=== PATIENT | female | born 1955 | race Asian ===

== ENCOUNTER 2017-10-24 22:02 | Emergency (ER) | payer OTHER ==
[2017-10-24 22:51] VITALS: BMI 20.8
[2017-10-24] MEDS ORDERED: ACETAMINOPHEN 325 MG TABLET (FP) PO ONE (23:18)
--- NOTE | 2017-10-24 23:18 | PDOC ---
History of Present Illness - History of Present Illness Initial Comments: 10/24/17 23:22 Patient is a 62 F, with PMHx of hypertension, who presents to the ED with elevated blood pressure. Patient recently found out that her brother and subsequently her blood pressure increased. She also endorses a mild posterior headache. She states she is experiencing chest pain that she describes it as pressure-like, non-radiating, and rates the pain 4/10. Denies shortness of breath. Social Hx: denies PMD: Vanessa Archer. <Tracy Galicia - Last Filed: 10/25/17 01:02> - General History Source: Patient <AbimaelOnofre mendes - Last Filed: 10/25/17 01:39> - General Chief Complaint: Blood Pressure Problem Stated Complaint: BLOOD PRESSURE PROBLEM Time Seen by Provider: 10/24/17 23:14 Past History <Tracy Galicia - Last Filed: 10/25/17 01:02> - Past Medical History COPD: No HTN: Yes - Suicide/Smoking/Psychosocial Hx Smoking History: Never smoked <Onofre Xiao - Last Filed: 10/25/17 01:39> - Past Medical History Allergies/Adverse Reactions: Allergies Allergy/AdvReac Type Severity Reaction Status Date / Time No Known Allergies Allergy Verified 10/24/17 22:46 Home Medications: Ambulatory Orders Cholecalciferol (Vitamin D3) [Vitamin D3 -] 1,000 unit PO DAILY 10/24/17 Metoprolol Succinate [Toprol Xl -] 100 mg PO DAILY 10/24/17 Review of Systems - Review of Systems Comments:: 10/24/17 23:23 CONSTITUTIONAL: Absent: fever, no chills, no fatigue EYES: Absent: visual changes ENT: Absent: ear pain, no sore throat CARDIOVASCULAR: Present: chest pain Absent: no palpitations RESPIRATORY: Absent: cough, no SOB GI: Absent: abdominal pain, no nausea, no vomiting, no constipation, no diarrhea GENITOURINARY: Absent: dysuria, no frequency, no hematuria MUSCULOSKELETAL: Absent: back pain, no arthralgia, no myalgia SKIN: Absent: rash NEURO: Present: headache <Tracy Galicia - Last Filed: 10/25/17 01:02> *Physical Exam - Vital Signs Last Vital Signs Temp Pulse Resp BP Pulse Ox 97.9 F 63 18 187/108 98 10/24/17 22:50 10/24/17 22:50 10/24/17 22:50 10/24/17 22:50 10/24/17 22:50 - Physical Exam Comments: 10/24/17 23:25 GENERAL: Well-appearing, well-nourished. No apparent distress. HEENT: Normocephalic, atraumatic. PERRL, EOM intact. CARDIOVASCULAR: Normal S1, S2. Regular rate and rhythm. PULMONARY: Clear to auscultation bilaterally. ABDOMEN: Soft, non-distended, non-tender. EXTREMITIES: Normal ROM in all four extremities. No gross deformities. SKIN: Warm, dry. No rash NEUROLOGICAL: No focal neurological deficits. <Tracy Galicia - Last Filed: 10/25/17 01:02> - Vital Signs Last Vital Signs Temp Pulse Resp BP Pulse Ox 97.9 F 63 18 187/108 98 10/24/17 22:50 10/24/17 22:50 10/24/17 22:50 10/24/17 22:50 10/24/17 22:50 <Onofre Xiao - Last Filed: 10/25/17 01:39> Heart Score/ECG Review - ECG Impressions Comment:: 10/25/17 01:02 EKG Interpretation: Sinus bradycardia Possible left atrial enlargement Vent. rate 57 bpm <Tracy Galicia - Last Filed: 10/25/17 01:02> ED Treatment Course - LABORATORY CBC & Chemistry Diagram: 10/25/17 00:10 10/25/17 00:10 <Tracy Galicia - Last Filed: 10/25/17 01:02> - LABORATORY CBC & Chemistry Diagram: 10/25/17 00:10 10/25/17 00:10 <Onofre Xiao - Last Filed: 10/25/17 01:39> Medical Decision Making - Medical Decision Making 10/25/17 01:39 Dr. Xiao: The scribe's documentation has been prepared under my direction and personally reviewed by me in its entirery. I confirm that the note above accurately reflects all work, treatment, procedures, and medical decision making performed by me. <Onofre Xiao - Last Filed: 10/25/17 01:39> *DC/Admit/Observation/Transfer - Attestations Scribe Attestion: 10/24/17 23:25 Documentation prepared by Tracy Galicia, acting as lpn or medical assistant for Onofre Xiao MD. <Tracy Galicia - Last Filed: 10/25/17 01:02> - Discharge Dispostion Admit: No <Onofre Xiao - Last Filed: 10/25/17 01:39> Diagnosis at time of Disposition: Hypertension - Discharge Dispostion Disposition: HOME Condition at time of disposition: Stable - Referrals Referrals: Rand Archer MD [Primary Care Provider] - Cody Yang MD [Staff Physician] - - Patient Instructions Printed Discharge Instructions: DI for High Blood Pressure, How to Monitor Your Blood Pressure at Home Additional Instructions: Please follow up with your primary care for re-evaluation. Return if any problems.
[2017-10-24] MEDS ORDERED: ACETAMINOPHEN 325 MG TABLET (FP) ONE (23:45)
[2017-10-25 00:20] LABS: BASO % 0.7 % (0-2.0); EOS % 2.3 % (0-4.5); HEMATOCRIT 47.1 % (32.4-45.2); HEMOGLOBIN 15.6 GM/dL (10.7-15.3); LYMPH % 32.4 % (8-40); MCH 28.8 pg (25.7-33.7); MCHC 33.2 g/dl (32.0-36.0); MEAN CELL VOLUME 86.7 fl (80-96); MEAN PLT VOLUME 7.4 fl (7.5-11.1); MONO % 10.5 % (3.8-10.2); NEUT % 54.1 % (42.8-82.8); PLATELET COUNT 506 K/MM3 (134-434); RBC 5.43 M/mm3 (3.60-5.2); RDW 13.7 % (11.6-15.6); WHITE BLOOD COUNT 10.6 K/mm3 (4.0-10.0)
[2017-10-25 00:47] LABS: ALBUMIN 3.8 g/dl (3.4-5.0); ANION GAP 9 (8-16); BILIRUBIN,TOTAL 0.3 mg/dL (0.2-1.0); BLOOD UREA NITROGEN 11 mg/dL (7-18); CALCIUM 9.7 mg/dL (8.5-10.1); CHLORIDE 104 mmol/L (98-107); CO2 29 mmol/L (21-32); CREATININE 0.7 mg/dL (0.55-1.02); GLUCOSE,RANDOM 102 mg/dL (74-106); SGPT/ALT 16 U/L (12-78); SODIUM 142 mmol/L (136-145); TOT PROT 7.9 g/dl (6.4-8.2)
[2017-10-25 00:50] LABS: ALK PHOS 54 U/L (45-117); POTASSIUM 4.1 mmol/L (3.5-5.1); SGOT/AST 12 U/L (15-37)
[2017-10-25 01:44] VITALS: BP 150/88; PULSE 56; TEMP 98
--- NOTE | 2017-10-25 10:30 | EKG ---
Test Reason : Blood Pressure : / mmHG Vent. Rate : 057 BPM Atrial Rate : 057 BPM P-R Int : 136 ms QRS Dur : 082 ms QT Int : 434 ms P-R-T Axes : 060 047 038 degrees QTc Int : 422 ms SINUS BRADYCARDIA POSSIBLE LEFT ATRIAL ENLARGEMENT BORDERLINE ECG NO PREVIOUS ECGS AVAILABLE Confirmed by COREY WILLIS MD ([id number]) on 10/25/2017 10:30:26 AM Referred By: Confirmed By:COREY WILLIS MD
== END 2017-10-25 01:52 | disposition home or self-care (01) ==
LOC: JER 22:02
DX: I10 Essential (primary) hypertension (principal)
CPT/HCPCS: 36415; 80053; 82550; 84484; 85025; 93005; 93010; 99282-25

== ENCOUNTER 2017-10-29 17:16 | Observation (INO) | payer OTHER ==
--- NOTE | 2017-10-29 17:26 | PDOC ---
Rapid Medical Evaluation Time Seen by Provider: 10/29/17 17:20 Medical Evaluation: Allergies Allergy/AdvReac Type Severity Reaction Status Date / Time No Known Allergies Allergy Verified 10/29/17 17:20 10/29/17 17:21 The patient presents with a chief complaint of: [Syncopal episode at 1 pm, hit the right side of the face. Unknown how long she was out, fell on the street and was not witnessed. Woke up by herself, walked home and she ate something. No Blood thinners.] I have performed a brief in-person evaluation of this patient. Pertinent physical exam findings: BP 155/93, Abrasion to the right side of the lips and pain to the right side of the face, ] I have ordered the following: [EKG, Labs, cardiac enzymes. UA, UC ] The patient will proceed to the ED for further evaluation. Discharge Disposition - Diagnosis Fall Qualifiers: Encounter type: initial encounter Qualified Code(s): W19.XXXA - Unspecified fall, initial encounter - Referrals - Patient Instructions - Post Discharge Activity
[2017-10-29 18:09] LABS: BASO % 0.7 % (0-2.0); HEMATOCRIT 42.8 % (32.4-45.2); HEMOGLOBIN 14.3 GM/dL (10.7-15.3); LYMPH % 21.8 % (8-40); MCHC 33.4 g/dl (32.0-36.0); MEAN PLT VOLUME 7.8 fl (7.5-11.1); MONO % 7.6 % (3.8-10.2); NEUT % 68.9 % (42.8-82.8); PLATELET COUNT 439 K/MM3 (134-434); RBC 4.92 M/mm3 (3.60-5.2); RDW 13.6 % (11.6-15.6); WHITE BLOOD COUNT 12.8 K/mm3 (4.0-10.0)
--- NOTE | 2017-10-29 18:22 | PDOC ---
History of Present Illness - General History Source: Patient Exam Limitations: No Limitations <Joseph Peterson - Last Filed: 10/29/17 19:29> <Veena Ness - Last Filed: 10/29/17 20:57> - General Chief Complaint: Syncope/Near Syncope Stated Complaint: FALL INJURY Time Seen by Provider: 10/29/17 17:20 - History of Present Illness Initial Comments: 10/29/17 18:22 This is 62-year-old woman with past medical history of hypertension uterine CA with total abdominal hysterectomy presents to the emergency department after a syncopal episode at approximately 1:00 this afternoon. Patient states she was leaving work and walking to the bus stop and then remembers waking up on the sidewalk. Patient denies feeling dizzy prior to syncopal episode. Patient then got up and took the bus home 8 some food without difficulty and came to the emergency department afterwards. Patient was seen and evaluated in this emergency room 2 days ago for hypertension. Patient denies fevers, chills, chest pain, shortness of breath, abdominal pain, nausea, vomiting, diarrhea. PMH: Hypertension, uterine CA PSH: MIRELLA PMD: Vanessa Archer Occupation: Home health aide Tobacco: Denies EtOH: Denies Illicits: Denies (Joseph Peterson) Past History - Past Medical History COPD: No HTN: Yes - Suicide/Smoking/Psychosocial Hx Smoking History: Never smoked Have you smoked in the past 12 months: No Information on smoking cessation initiated: No Hx Alcohol Use: No Drug/Substance Use Hx: No Substance Use Type: None <Joseph Peterson - Last Filed: 10/29/17 19:29> <Veena Ness - Last Filed: 10/29/17 20:57> - Past Medical History Allergies/Adverse Reactions: Allergies Allergy/AdvReac Type Severity Reaction Status Date / Time No Known Allergies Allergy Verified 10/29/17 17:20 Home Medications: Ambulatory Orders Cholecalciferol (Vitamin D3) [Vitamin D3 -] 1,000 unit PO DAILY 10/24/17 Metoprolol Succinate [Toprol Xl -] 100 mg PO DAILY 10/24/17 Review of Systems - Review of Systems Able to Perform ROS?: Yes Is the patient limited Salvadorean proficient: No Constitutional: No: Symptoms Reported HEENTM: No: Symptoms Reported Respiratory: No: Symptoms reported Cardiac (ROS): Yes: See HPI ABD/GI: No: Symptoms Reported : No: Symptoms Reported Musculoskeletal: No: Symptoms Reported Integumentary: No: Symptoms Reported Neurological: No: Symptoms reported Endocrine: No: Symptoms Reported Hematologic/Lymphatic: No: Symptoms Reported <Joseph Peterson - Last Filed: 10/29/17 19:29> *Physical Exam - Physical Exam General Appearance: Yes: Appropriately Dressed. No: Apparent Distress HEENT: positive: Orbits (tenderness to right infraorbit), Other (chipped teeth # 7&8). negative: Pharyngeal Erythema, Tonsillar Exudate, Nasal Congestion, Sinus Tenderness Neck: positive: Trachea midline, Supple Respiratory/Chest: positive: Lungs Clear, Normal Breath Sounds. negative: Chest Tender, Respiratory Distress, Accessory Muscle Use Cardiovascular: positive: Regular Rhythm, Regular Rate, S1, S2. negative: Edema , JVD, Murmur Gastrointestinal/Abdominal: positive: Normal Bowel Sounds, Soft. negative: Tender Musculoskeletal: positive: Normal Inspection. negative: CVA Tenderness Extremity: positive: Normal Range of Motion, Other (abrasion to right knee) Integumentary: positive: Normal Color, Dry, Warm, Other (abrasion to right knee) Neurologic: positive: heel turner II-XII NML intact, Fully Oriented, Alert, Normal Mood/ Affect, Normal Response, Motor Strength 5/5, Finger to Nose <Joseph Peterson - Last Filed: 10/29/17 19:29> - Vital Signs Last Vital Signs Temp Pulse Resp BP Pulse Ox 98.2 F 67 18 155/93 100 10/29/17 17:21 10/29/17 17:21 10/29/17 17:21 10/29/17 17:21 10/29/17 17:21 Heart Score/ECG Review - History History: Slightly suspicious - Electrocardiogram EKG: Non specific repolarization disturbance - Age Age: 45-65 - Risk Factors Risk Factors Heart Score: Yes Hx Hypertension Based on the list above the patient has:: 1-2 risk factors - ECG Intrepretation Rhythm: Regular Rhythm - ST and T Non Specific ST-T Wave changes: Yes - ECG Impressions Ischemic Changes: No <NicholasJoseph - Last Filed: 10/29/17 19:29> ED Treatment Course - LABORATORY CBC & Chemistry Diagram: 10/29/17 17:43 10/29/17 17:43 <Joseph Peterson - Last Filed: 10/29/17 19:29> - LABORATORY CBC & Chemistry Diagram: 10/29/17 17:43 10/29/17 17:43 <Veena Ness - Last Filed: 10/29/17 20:57> - ADDITIONAL ORDERS Additional order review: Laboratory Results 10/29/17 10/29/17 18:05 17:43 Sodium 141 Potassium 3.8 Chloride 105 Carbon Dioxide 29 Anion Gap 7 L BUN 12 Creatinine 0.7 Creat Clearance w eGFR > 60 Random Glucose 132 H Calcium 9.2 Total Bilirubin 0.4 D AST 11 L ALT 16 Alkaline Phosphatase 47 Creatine Kinase 51 Troponin I < 0.02 Total Protein 7.0 Albumin 3.7 Urine Color Ltyellow Urine Appearance Clear Urine pH 5.0 Ur Specific [place] 1.004 Urine Protein Negative Urine Glucose (UA) Negative Urine Ketones Negative Urine Blood Negative Urine Nitrite Negative Urine Bilirubin Negative Urine Urobilinogen Negative Ur Leukocyte Esterase Negative 10/29/17 17:43 RBC 4.92 MCV 87.0 MCHC 33.4 RDW 13.6 MPV 7.8 Neutrophils % 68.9 D Lymphocytes % 21.8 D Monocytes % 7.6 Eosinophils % 1.0 Basophils % 0.7 - RADIOLOGY Radiology Studies Ordered: Category Date Time Status FACIAL BONES CT W/O CONTRAST [CT] Stat CT Scan 10/29/17 20:13 Ordered - Medications Given in the ED: ED Medications Discontinued Medications Generic Name Dose Route Start Last Admin Trade Name Freq PRN Reason Stop Dose Admin Tetanus/Diphtheria Toxoids Adsorbed 0.5 ml 10/29/17 20:17 10/29/17 20:25 Decavac IM 10/29/17 20:18 0.5 ml .ONCE ONE Administration Medical Decision Making <Joseph Peterson - Last Filed: 10/29/17 19:29> <Veena Ness - Last Filed: 10/29/17 20:57> - Medical Decision Making 10/29/17 18:22 A/P: 62-year-old woman with syncopal episode. Multiple abrasions to right side of face noted. Tenderness to right infraorbital. EOMI. EKG: NSR with rate of 66 unchanged from EKG on October 25, 2017. Labs, chest x-ray, UA, head CT. I will reevaluate the patient after all test has been completed. 10/29/17 19:29 I have given report to BERNY Ness regarding this patient. Pt's initial chief complaint: [ syncope] Pt's work up completed prior to sign out: [ Labs, UA, EKG] Pt treatment given from prior staff: [n/a] Pt plan to be completed: [Awaiting CT scan results] Dispo: [ admit to hospitalist ] (Joseph Peterson) *DC/Admit/Observation/Transfer <Joseph Peterson - Last Filed: 10/29/17 19:29> - Discharge Dispostion Admit: Yes <Veena Ness - Last Filed: 10/29/17 20:57> Diagnosis at time of Disposition: Syncope and collapse - Referrals Referrals: Rand Archer MD [Primary Care Provider] - - Patient Instructions - Post Discharge Activity
[2017-10-29 18:39] LABS: ALBUMIN 3.7 g/dl (3.4-5.0); ANION GAP 7 (8-16); BILIRUBIN,TOTAL 0.4 mg/dL (0.2-1.0); BLOOD UREA NITROGEN 12 mg/dL (7-18); CALCIUM 9.2 mg/dL (8.5-10.1); CHLORIDE 105 mmol/L (98-107); CO2 29 mmol/L (21-32); CREATININE 0.7 mg/dL (0.55-1.02); GLUCOSE,RANDOM 132 mg/dL (74-106); POTASSIUM 3.8 mmol/L (3.5-5.1); SGOT/AST 11 U/L (15-37); SGPT/ALT 16 U/L (12-78); SODIUM 141 mmol/L (136-145)
[2017-10-29 18:42] LABS: ALK PHOS 47 U/L (45-117)
[2017-10-29 18:46] LABS: URINE APPEARANCE CLEAR; URINE BILIRUBIN NEGATIVE (NEGATIVE); URINE BLOOD NEGATIVE (NEGATIVE); URINE COLOR LTYELLOW; URINE GLUCOSE (UA) NEGATIVE (NEGATIVE); URINE KETONE NEGATIVE (NEGATIVE); URINE LEUK ESTERASE NEGATIVE (NEGATIVE); URINE NITRITE NEGATIVE (NEGATIVE); URINE PROTEIN NEGATIVE (NEGATIVE); URINE UROBILINOGEN NEGATIVE mg/dL (0.2-1.0)
--- NOTE | 2017-10-29 19:40 | PDOC ---
*Physical Exam - Vital Signs Last Vital Signs Temp Pulse Resp BP Pulse Ox 98.2 F 67 18 155/93 100 10/29/17 17:21 10/29/17 17:21 10/29/17 17:21 10/29/17 17:21 10/29/17 17:21 - Physical Exam General Appearance: Yes: Appropriately Dressed HEENT: positive: Other (right sided facial tenderness, + chipped upper frontal incisor ) Respiratory/Chest: positive: Lungs Clear, Normal Breath Sounds Cardiovascular: positive: Regular Rhythm, Regular Rate Gastrointestinal/Abdominal: positive: Normal Bowel Sounds, Soft Extremity: positive: Normal Capillary Refill, Normal Inspection, Normal Range of Motion Integumentary: positive: Normal Color, Dry, Warm Neurologic: positive: Fully Oriented, Alert, Normal Mood/Affect ED Treatment Course - LABORATORY CBC & Chemistry Diagram: 10/31/17 06:55 10/31/17 06:55 - ADDITIONAL ORDERS Additional order review: Laboratory Results 10/29/17 10/29/17 18:05 17:43 Sodium 141 Potassium 3.8 Chloride 105 Carbon Dioxide 29 Anion Gap 7 L BUN 12 Creatinine 0.7 Creat Clearance w eGFR > 60 Random Glucose 132 H Calcium 9.2 Total Bilirubin 0.4 D AST 11 L ALT 16 Alkaline Phosphatase 47 Creatine Kinase 51 Troponin I < 0.02 Total Protein 7.0 Albumin 3.7 Urine Color Ltyellow Urine Appearance Clear Urine pH 5.0 Ur Specific [place] 1.004 Urine Protein Negative Urine Glucose (UA) Negative Urine Ketones Negative Urine Blood Negative Urine Nitrite Negative Urine Bilirubin Negative Urine Urobilinogen Negative Ur Leukocyte Esterase Negative 10/29/17 17:43 RBC 4.92 MCV 87.0 MCHC 33.4 RDW 13.6 MPV 7.8 Neutrophils % 68.9 D Lymphocytes % 21.8 D Monocytes % 7.6 Eosinophils % 1.0 Basophils % 0.7 Progress Note - Progress Note Progress Note: A: syncope P: CT facial bones pending. CT head and neck pending. Medical Decision Making - Medical Decision Making 10/29/17 20:17 patient reports waking up on the sidewalk post syncope. denies incontinence of bowel or urine. no recollection of the incident. + abrasion to face. last tetanus unknown. P: tetanus CT facial : negative. 10/29/17 20:57 Patient signed out to Dr. Ayaan for obs tele admission. *DC/Admit/Observation/Transfer Diagnosis at time of Disposition: Syncope and collapse - Discharge Dispostion Disposition: HOME Condition at time of disposition: Stable - Prescriptions - Referrals - Patient Instructions - Post Discharge Activity
[2017-10-29] MEDS ORDERED: TETANUS AND DIPHTHERIA TOXOID 0.5 ML DISP.SYRIN IM ONE (20:17)
--- NOTE | 2017-10-29 20:45 | PN ---
Teaching Attending Note Name of Resident: Heriberto Kohli ATTENDING PHYSICIAN STATEMENT I saw and evaluated the patient. I reviewed the resident's note and discussed the case with the resident. I agree with the resident's findings and plan as documented. SUBJECTIVE: 62 F with Pmhx. of HTN, Uterine Ca, TAHBSO. who presents after loss of concioussness. States aroun 1 pm this afternoon she left work and was at the bus stop, when she awoke on the sidewalk. No dizziness, or lightheadedness prior. No chest pain, pressure or shortness of breath. Denies any fever or chills. No urinary urgency or dysuria. OBJECTIVE: Physical: VS: Vital Signs Period Temp Pulse Resp BP Sys/Purcell Pulse Ox Last 24 Hr 98.2 F 67 18 155/93 100 GEN: NAD, resting in bed, AA0X3 HEENT: NCAT, PERRL, throat without erythema or exudates CARD: RRR S1, S2 RESP: CTAB ABD: 5X4 cm LLQ abdominal mass on palpation. BS present EXT: - C/C/E CBCD WBC 12.8 K/mm3 (4.0-10.0) H 10/29/17 17:43 RBC 4.92 M/mm3 (3.60-5.2) 10/29/17 17:43 Hgb 14.3 GM/dL (10.7-15.3) 10/29/17 17:43 Hct 42.8 % (32.4-45.2) 10/29/17 17:43 MCV 87.0 fl (80-96) 10/29/17 17:43 MCHC 33.4 g/dl (32.0-36.0) 10/29/17 17:43 RDW 13.6 % (11.6-15.6) 10/29/17 17:43 Plt Count 439 K/MM3 (134-434) H 10/29/17 17:43 MPV 7.8 fl (7.5-11.1) 10/29/17 17:43 CMP Sodium 141 mmol/L (136-145) 10/29/17 17:43 Potassium 3.8 mmol/L (3.5-5.1) 10/29/17 17:43 Chloride 105 mmol/L (98-107) 10/29/17 17:43 Carbon Dioxide 29 mmol/L (21-32) 10/29/17 17:43 Anion Gap 7 (8-16) L 10/29/17 17:43 BUN 12 mg/dL (7-18) 10/29/17 17:43 Creatinine 0.7 mg/dL (0.55-1.02) 10/29/17 17:43 Creat Clearance w eGFR > 60 (>60) 10/29/17 17:43 Random Glucose 132 mg/dL (74-106) H 10/29/17 17:43 Calcium 9.2 mg/dL (8.5-10.1) 10/29/17 17:43 Total Bilirubin 0.4 mg/dL (0.2-1.0) D 10/29/17 17:43 AST 11 U/L (15-37) L 10/29/17 17:43 ALT 16 U/L (12-78) 10/29/17 17:43 Alkaline Phosphatase 47 U/L (45-117) 10/29/17 17:43 Total Protein 7.0 g/dl (6.4-8.2) 10/29/17 17:43 Albumin 3.7 g/dl (3.4-5.0) 10/29/17 17:43 CARDIAC ENZYMES Creatine Kinase 51 IU/L (26-192) 10/29/17 17:43 Troponin I < 0.02 ng/ml (0.00-0.05) 10/29/17 17:43 CT HEAD- NEGATIVE CT C-SPINE: Negative for acute fracture EKG: NSR CXR: NO Acute Process ABD/PELVIS CT: Massively enlarged heterogenous uterus w. loss of uterine definition, small free pelvi fluid and right inguinal hernia containing simple fluid. Ovaries not visualized. Few small hepatic cyst in addition to subcm to small to charachterize hypodensities Bilateral [place] with discoid atelectasis R>L. ASSESSMENT AND PLAN: 62 F with Pmhx. of HTN, Uterine Ca s/p TAHBSO. who presents after loss of concioussness, being admitted for syncope 1.) Loss of Conscioussness - Ddx: Vasovagal/Cardiogenic syncope - Trend Trop/EKG - Echo/Carotid - Orthostatic VS - Lipid Panel - TSH 2.) Uterine Mass DDx: Fibroid Vs. Leiomyosarcoma - CTAP as above - Needs body builder onc eval for Bx - ? Depending on dx, may need MRI Brain 3.) HTN - Amlodipine - Hold BB as pt. is slightly bradycardic in 50s 4.) Dvt ppx - SCDs Place in Obs-Tele
[2017-10-29] MEDS ORDERED: amLODIPine BESYLATE 2.5 MG TABLET (FP) PO SCH (22:00)
--- NOTE | 2017-10-29 22:13 | HP ---
CHIEF COMPLAINT: syncope PCP: HISTORY OF PRESENT ILLNESS: 62 y/o F with PMH HTN (recent ED visit to [facility]), uterine tumor (1986), who presents to the ED after syncopal episode at 1pm this afternoon. 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 Pt states that she has no recollection of what happened prior to the fall, but she woke up outstretched on the ground. States that she had LOC for a few seconds, however fall was unwitnessed. Pt endorsed R sided head trauma with bruising, and minor lacerations to her R lip and knee, as well as chest pain, and subjective chills. Pt did not sleep well last night, as her brother recently . Prior to the event, she drank tea and coffee, denies drastic change in fluid or PO intake. She states that she initially went to Urgent Care, however they did not take her insurance, so she came to the ED. Denied palpitations, loss of bowel or urinary incontinence during episode, tongue biting, fever, N/V, blurred vision, or recent sick contacts. ER course was notable for: (1) leukocytosis 12.8 (2) First trop negative, <.02 (3) Received tetanus and diphtheria toxoid 0.5ml IM Recent Travel: none PAST MEDICAL HISTORY: HTN (recent ED visit to [facility]), uterine tumor (1986), 2017 CT (uterine fibroid vs. leiomyoma- massively enlarged and heterogeneous uterus with loss of uterine definition. Small amt free pelvic fluid) PAST SURGICAL HISTORY: as per MIRELLA pires (1987) Social History: works as a health aid Smoking: denies, second hand smoke exposure through Alcohol: denies Drugs: denies Family History: mother- nasopharynx CA, father- pancreatic CA Allergies No Known Allergies Allergy (Verified 10/29/17 17:20) HOME MEDICATIONS: Home Medications Medication Instructions Recorded Cholecalciferol (Vitamin D3) 1,000 unit PO DAILY 10/24/17 [Vitamin D3 -] Metoprolol Succinate [Toprol Xl -] 100 mg PO DAILY 10/24/17 REVIEW OF SYSTEMS CONSTITUTIONAL: Absent: fever, chills, diaphoresis, generalized weakness, malaise, loss of appetite, weight change HEENT: Absent: rhinorrhea, nasal congestion, throat pain, throat swelling, difficulty swallowing, mouth swelling, ear pain, eye pain, visual changes CARDIOVASCULAR: +chest pain, syncope Absent: palpitations, irregular heart rate, lightheadedness, peripheral edema RESPIRATORY: Absent: cough, shortness of breath, dyspnea with exertion, orthopnea, wheezing, stridor, hemoptysis GASTROINTESTINAL: Absent: abdominal pain, abdominal distension, nausea, vomiting, diarrhea, constipation, melena, hematochezia GENITOURINARY: Absent: dysuria, frequency, urgency, hesitancy, hematuria, flank pain, genital pain MUSCULOSKELETAL: Absent: myalgia, arthralgia, joint swelling, back pain, neck pain SKIN: Absent: rash, itching, pallor HEMATOLOGIC/IMMUNOLOGIC: Absent: easy bleeding, easy bruising, lymphadenopathy, frequent infections ENDOCRINE: Absent: unexplained weight gain, unexplained weight loss, heat intolerance, cold intolerance NEUROLOGIC: Absent: headache, focal weakness or paresthesias, dizziness, unsteady gait, seizure, mental status changes, bladder or bowel incontinence PSYCHIATRIC: Absent: anxiety, depression, suicidal or homicidal ideation, hallucinations. PHYSICAL EXAMINATION Vital Signs - 24 hr 10/29/17 17:21 Temperature 98.2 F Pulse Rate 67 Respiratory 18 Rate Blood Pressure 155/93 O2 Sat by Pulse 100 Oximetry (%) GENERAL: Resting comfortably. Awake, alert, and fully oriented, in no acute distress. HEAD: +occipital bruise, +R lip laceration EYES: Pupils equal, round and reactive to light, extraocular movements intact, sclera anicteric, conjunctiva clear. EARS, NOSE, THROAT: Ears normal, nares patent, oropharynx clear without exudates. Dry mucous membranes. NECK: Normal range of motion, supple LUNGS: Breath sounds equal, clear to auscultation bilaterally. No wheezes, and no crackles. No accessory muscle use. HEART: Regular rate and rhythm, normal S1 and S2 without murmur, rub or gallop. ABDOMEN: Soft, nontender, suprapubic mass (L>R), normoactive bowel sounds, no guarding LOWER EXTREMITIES: 2+ posterior tibial pulses, warm, well-perfused. No calf tenderness. No peripheral edema. Active and passive ROM NEUROLOGICAL: Cranial nerves II-XII and cerebellar fnc intact. Normal gait. PSYCHIATRIC: Cooperative. Laboratory Results 10/29/17 10/29/17 10/29/17 17:43 17:43 18:05 WBC 12.8 H RBC 4.92 Hgb 14.3 Hct 42.8 MCV 87.0 MCH 29.0 MCHC 33.4 RDW 13.6 Plt Count 439 H MPV 7.8 Neutrophils % 68.9 D Lymphocytes % 21.8 D Monocytes % 7.6 Eosinophils % 1.0 Basophils % 0.7 Sodium 141 Potassium 3.8 Chloride 105 Carbon Dioxide 29 Anion Gap 7 L BUN 12 Creatinine 0.7 Creat Clearance w eGFR > 60 Random Glucose 132 H Calcium 9.2 Total Bilirubin 0.4 D AST 11 L ALT 16 Alkaline Phosphatase 47 Creatine Kinase 51 Troponin I < 0.02 Total Protein 7.0 Albumin 3.7 Urine Color Ltyellow Urine Appearance Clear Urine pH 5.0 Ur Specific [place] 1.004 Urine Protein Negative Urine Glucose (UA) Negative Urine Ketones Negative Urine Blood Negative Urine Nitrite Negative Urine Bilirubin Negative Urine Urobilinogen Negative Ur Leukocyte Esterase Negative Microbiology -Urine cx: still pending Radio -EKG: NSR, Qtc 426 -Cervical spine CT: no acute fx, chronic degenerative changes in C5-C6, cervical spondylolysis -Head CT: no intracranial hemorrhage, chronic sphenoid sinus dz -CXR: without infiltrates ASSESSMENT/PLAN: 62 y/o F with PMH HTN (recent ED visit to [facility]), uterine tumor (1986), who presents to the ED after syncopal episode at 1pm this afternoon. Pt being admitted to tele obs for syncope r/o vasovagal vs. cardiogenic etiology. #Syncopal episode, r/o vasovagal vs. cardiogenic etiology -possible vasovagal, pt with recent life stress, emotional -possible cardiogenic, as pt bradycardic, hx chest pain -F/u ECHO -Trend troponins, first trop (-) -Orthostatic vitals q4hr -F/u Carotid US -F/u tomorrow's EKG -F/u lipid panel, TSH #hx enlarged uterus past CT 2016 -currently asymptomatic, however r/o uterine fibroid vs. leiomyosarcoma -Process Improvement Analyst consulted- Dr. Durbin -May need possible bx #HTN-currently uncontrolled -holding home metoprolol, as pt bradycardic -started on lowest dose amlodipine (norvasc 2.5mg PO daily) -continue to monitor and reassess dosage #PPX -DVT: SCD's #F/E/N IV NS 83 cc/hr Monitor electrolytes Sodium controlled diet #Dispo tele obs Visit type - Emergency Visit Emergency Visit: Yes ED Registration Date: 10/29/17 Care time: The patient presented to the Emergency Department on the above date and was hospitalized for further evaluation of their emergent condition. - New Patient This patient is new to me today: Yes Date on this admission: 10/29/17 - Critical Care Critical Care patient: No
[2017-10-29] MEDS: SODIUM CHLORIDE 1,000 ML IV SCH (22:38)
[2017-10-29] MEDS ORDERED: amLODIPine BESYLATE 5 MG TABLET (FP) ONE (23:08)
[2017-10-29 23:54] LABS: CHOLESTEROL 184 mg/dL (50-200); TRIGLYCERIDES 258 mg/dL (35-160)
[2017-10-30 00:58] LABS: HDL CHOLESTEROL 37 mg/dL (40-60); LDL CHOLESTEROL (ONLY SJRH) 115 mg/dL (5-100)
[2017-10-30 01:51] VITALS: BMI 20.5
[2017-10-30] MEDS: SODIUM CHLORIDE 1,000 ML IV SCH (06:56)
[2017-10-30 07:27] LABS: ANION GAP 8 (8-16); BLOOD UREA NITROGEN 16 mg/dL (7-18); CALCIUM 8.9 mg/dL (8.5-10.1); CHLORIDE 106 mmol/L (98-107); CO2 28 mmol/L (21-32); CREATININE 0.6 mg/dL (0.55-1.02); GLUCOSE,RANDOM 96 mg/dL (74-106); MAGNESIUM 1.9 mg/dL (1.8-2.4); PHOSPHOROUS 4.1 mg/dL (2.5-4.9); POTASSIUM 4.2 mmol/L (3.5-5.1); SODIUM 142 mmol/L (136-145)
[2017-10-30 07:41] LABS: BASO % 0.6 % (0-2.0); EOS % 1.1 % (0-4.5); HEMATOCRIT 43.3 % (32.4-45.2); HEMOGLOBIN 14.1 GM/dL (10.7-15.3); LYMPH % 22.9 % (8-40); MCH 28.5 pg (25.7-33.7); MCHC 32.6 g/dl (32.0-36.0); MEAN CELL VOLUME 87.5 fl (80-96); MEAN PLT VOLUME 7.8 fl (7.5-11.1); MONO % 9.8 % (3.8-10.2); NEUT % 65.6 % (42.8-82.8); PLATELET COUNT 439 K/MM3 (134-434); RBC 4.95 M/mm3 (3.60-5.2); RDW 13.3 % (11.6-15.6); WHITE BLOOD COUNT 12.3 K/mm3 (4.0-10.0)
[2017-10-30] MEDS ORDERED: SODIUM CHLORIDE 1,000 ML IV SCH (07:50)
--- NOTE | 2017-10-30 11:41 | EKG ---
Test Reason : Blood Pressure : / mmHG Vent. Rate : 065 BPM Atrial Rate : 065 BPM P-R Int : 132 ms QRS Dur : 090 ms QT Int : 424 ms P-R-T Axes : 058 051 040 degrees QTc Int : 440 ms NORMAL SINUS RHYTHM NORMAL ECG WHEN COMPARED WITH ECG OF 29-OCT-2017 23:42, T WAVE INVERSION NO LONGER EVIDENT IN ANTERIOR LEADS Confirmed by MD TAY, ETHEL ([id number]) on 10/30/2017 11:41:01 AM Referred By: Bob CARRIZALES Confirmed By:ETHEL CROSS MD
--- NOTE | 2017-10-30 14:07 | EKG ---
Test Reason : Blood Pressure : / mmHG Vent. Rate : 066 BPM Atrial Rate : 066 BPM P-R Int : 132 ms QRS Dur : 082 ms QT Int : 416 ms P-R-T Axes : 055 055 050 degrees QTc Int : 436 ms NORMAL SINUS RHYTHM POSSIBLE LEFT ATRIAL ENLARGEMENT NONSPECIFIC ST ABNORMALITY ABNORMAL ECG WHEN COMPARED WITH ECG OF 25-OCT-2017 00:51, NO SIGNIFICANT CHANGE WAS FOUND Confirmed by MD TAY, ETHEL ([id number]) on 10/30/2017 2:07:17 PM Referred By: Confirmed By:ETHEL CROSS MD
--- NOTE | 2017-10-30 15:14 | PN ---
Physical Exam: SUBJECTIVE: Patient seen and examined at bedside. She states that she doesn't recall feeling ill, dizzy, or lightheaded before she fell. Denies palpitations. Does not remember falling and only remembers waking up on the ground shivering from being cold. Currently denies any systemic complaints. No chest pain or SOB , n/v/d. OBJECTIVE: Vital Signs Period Temp Pulse Resp BP Sys/Purcell Pulse Ox Last 24 Hr 98 F-98.6 F 60-67 17-18 99-155/61-93 98-100 GENERAL: The patient is awake, alert, and fully oriented, in no acute distress. HEAD: Normal with no signs of trauma. LUNGS: Breath sounds equal, clear to auscultation bilaterally, no wheezes, no crackles, no accessory muscle use. HEART: Regular rate and rhythm, S1, S2 without murmur, rub or gallop. ABDOMEN: hard mass palpated in the LLQ that spans around to the RLQ, nontender, normoactive bowel sounds, no guarding, no rebound, no hepatosplenomegaly EXTREMITIES: 2+ pulses, warm, well-perfused, no edema. NEUROLOGICAL: Cranial nerves II through XII grossly intact. Normal speech, gait not observed. PSYCH: Normal mood, normal affect. SKIN: Warm, dry, normal turgor, no rashes or lesions noted Laboratory Results - last 24 hr 10/29/17 10/29/17 10/29/17 17:43 17:43 18:05 WBC 12.8 H RBC 4.92 Hgb 14.3 Hct 42.8 MCV 87.0 MCH 29.0 MCHC 33.4 RDW 13.6 Plt Count 439 H MPV 7.8 Neutrophils % 68.9 D Lymphocytes % 21.8 D Monocytes % 7.6 Eosinophils % 1.0 Basophils % 0.7 Sodium 141 Potassium 3.8 Chloride 105 Carbon Dioxide 29 Anion Gap 7 L BUN 12 Creatinine 0.7 Creat Clearance w eGFR > 60 Random Glucose 132 H Calcium 9.2 Phosphorus Magnesium Total Bilirubin 0.4 D AST 11 L ALT 16 Alkaline Phosphatase 47 Creatine Kinase 51 Troponin I < 0.02 Total Protein 7.0 Albumin 3.7 Triglycerides Cholesterol Total LDL Cholesterol HDL Cholesterol TSH Urine Color Ltyellow Urine Appearance Clear Urine pH 5.0 Ur Specific [place] 1.004 Urine Protein Negative Urine Glucose (UA) Negative Urine Ketones Negative Urine Blood Negative Urine Nitrite Negative Urine Bilirubin Negative Urine Urobilinogen Negative Ur Leukocyte Esterase Negative 10/29/17 10/29/17 10/30/17 22:40 22:40 05:05 WBC 12.3 H RBC 4.95 Hgb 14.1 Hct 43.3 MCV 87.5 MCH 28.5 MCHC 32.6 RDW 13.3 Plt Count 439 H MPV 7.8 Neutrophils % 65.6 Lymphocytes % 22.9 Monocytes % 9.8 Eosinophils % 1.1 Basophils % 0.6 Sodium Potassium Chloride Carbon Dioxide Anion Gap BUN Creatinine Creat Clearance w eGFR Random Glucose Calcium Phosphorus Magnesium Total Bilirubin AST ALT Alkaline Phosphatase Creatine Kinase Troponin I < 0.02 Total Protein Albumin Triglycerides 258 H Cholesterol 184 Total LDL Cholesterol 115 H HDL Cholesterol 37 L TSH Urine Color Urine Appearance Urine pH Ur Specific [place] Urine Protein Urine Glucose (UA) Urine Ketones Urine Blood Urine Nitrite Urine Bilirubin Urine Urobilinogen Ur Leukocyte Esterase 10/30/17 10/30/17 05:05 08:04 WBC RBC Hgb Hct MCV MCH MCHC RDW Plt Count MPV Neutrophils % Lymphocytes % Monocytes % Eosinophils % Basophils % Sodium 142 Potassium 4.2 Chloride 106 Carbon Dioxide 28 Anion Gap 8 BUN 16 Creatinine 0.6 Creat Clearance w eGFR Random Glucose 96 Calcium 8.9 Phosphorus 4.1 Magnesium 1.9 Total Bilirubin AST ALT Alkaline Phosphatase Creatine Kinase Troponin I < 0.02 Total Protein Albumin Triglycerides Cholesterol Total LDL Cholesterol HDL Cholesterol TSH 1.28 Urine Color Urine Appearance Urine pH Ur Specific [place] Urine Protein Urine Glucose (UA) Urine Ketones Urine Blood Urine Nitrite Urine Bilirubin Urine Urobilinogen Ur Leukocyte Esterase Active Medications Generic Name Dose Route Start Last Admin Trade Name Freq PRN Reason Stop Dose Admin Sodium Chloride 1,000 mls @ 100 mls/hr 10/30/17 07:50 10/30/17 09:18 Normal Saline - IV 100 mls/hr ASDIR MASSIMO Administration Metoprolol Succinate 100 mg 10/31/17 10:00 Toprol Xl - PO DAILY MASSIMO IMAGING -EKG: NSR, Qtc 426 -Cervical spine CT: no acute fx, chronic degenerative changes in C5-C6, cervical spondylolysis -Head CT: no intracranial hemorrhage, chronic sphenoid sinus dz -CXR: without infiltrates -Old CT abd/pelvis from 2017: Large 23cm mass found in the pelvis compressing the bladder - echogenic foci noted in the liver ASSESSMENT/PLAN: 62 y/o F with PMH HTN (recent ED visit to [facility]), uterine tumor (1986), admitted to the hospital for evaluation of syncope, likely cardiogenic vs vasovagal #Syncopal episode: 2 runs of VT on telemetry -echo moderate aortic sclerosis -trops returned negative -Orthostatic vitals negative for orthostatic hypotension -carotid US negative for significant stenosis -Cardiology Dr. Hines/Jadon consulted -would like brain MRI to rule out mets given mass in pelvis -pt has elevated cholesterol/LDL #Hypercholesterolemia: likely chronic -start on atorvastatin 40mg PO QD #Pelvic Mass: likely need evaluation by retort operator -currently asymptomatic -may need further imaging, would -Board Mill Supervisor consulted- Dr. Durbin -IR contacted - no biopsy for now and wait on retort operator before doing MRI abdomen -May need possible bx #Hypertension: stable for now -holding home metoprolol, restart tomorrow given BP isn't hypotensive -continue to monitor and reassess dosage #Prophylaxis SCDs #FEN NS @ 100cc/hr Monitor electrolytes, restart in Am Sodium controlled diet #Disposition Continue to monitor on tele-obs Visit type - Emergency Visit Emergency Visit: No - New Patient This patient is new to me today: No - Critical Care Critical Care patient: No
--- NOTE | 2017-10-30 17:41 | PN ---
Teaching Attending Note Name of Resident: Joseph Michel ATTENDING PHYSICIAN STATEMENT I saw and evaluated the patient. I reviewed the resident's note and discussed the case with the resident. I agree with the resident's findings and plan as documented. SUBJECTIVE: No fever or chills. Has no abd pain, ,does nto recall having any sx before or after her fall ( palpitations, cp , SOb or dizziness ) reports syncope long time ago, with dizziness proceeding. reports hysterectomy in 1986, but not sure of details and does know if she has her ovaries. she treats her abd tumor with herbs . denies vaginal bleed OBJECTIVE: NAD, tearful at times CV: RRR, NO MRG Lungs: CTAB Ext: no edema Abd: soft, ND, no TTP, abd mass in lower abd felt in LLQ, RLQ, and suprapubic area. dullness over this mass. neuro: no facial droop, EOMI, round equal pupils reactive to light . tongue and uvula at mid line . strength 5/5 in upper and lower ext proximally and distally. sensation to light touch nl. reflexes 2+ biceps and triceps b/l. nose to finger intact ASSESSMENT AND PLAN: 62 y/o lady with h/o HTN, h/o abd tumor s/p resection 1986 ( no clear details ) , who presented with syncope 1- Syncope: in DDx arrhythmias, vasovagal or seizure EKG with NSR, no ST or TW changes. ortho VS neg 2 short runs of VT seen on resident review of tele. - cont tele - monitor electrolytes - card consult - check MRI given her abd mass and possibility of cancer . r/o mets to brain 2- Abd mass: Ct a/p 10/17 reviewed. large mass in pelvis with hypo-dense areas in liver. ? uterine leiomyoma vs leiomyosarcoma , vs ovarian tumor . suspect pt had myomectomy not hysterectomy in 1986 . sx was performed in [facility] . - d/w dr. Saavedra. MRI is not the best study to perform . and Bx is not recommended due to risk of seeding - order CT of abd with contrast - GN consult - dw pt possibility of cancer . 3- HTN: cont metoprolol 4- hyperlipidemia: LDL 115. her 10 yr risk for CAd is 27%. indicating need to treat with statin - start low dose statin. adjust as outpt in 8 weeks 5- DVT px
[2017-10-30] MEDS: HEPARIN NA (PORCINE) 5,000 UNITS/ML 1ML VIAL SQ SCH (21:04)
[2017-10-30] MEDS ORDERED: ATORVASTATIN CA 10 MG TABLET (FP) PO SCH (22:00)
[2017-10-30] MEDS ORDERED: ATORVASTATIN CA 40 MG TABLET (FP) PO SCH ×2 (22:00)
[2017-10-31] MEDS: HEPARIN NA (PORCINE) 5,000 UNITS/ML 1ML VIAL SQ SCH ×2 (06:00→15:13)
--- NOTE | 2017-10-31 07:13 | PN ---
Teaching Attending Note Name of Resident: Joseph Michel ATTENDING PHYSICIAN STATEMENT I saw and evaluated the patient. I reviewed the resident's note and discussed the case with the resident. I agree with the resident's findings and plan as documented. SUBJECTIVE: OBJECTIVE: Vital Signs Temperature 98.0 F 10/31/17 05:54 Pulse Rate 75 10/31/17 05:54 Respiratory Rate 17 10/31/17 05:54 Blood Pressure 120/76 10/31/17 05:54 O2 Sat by Pulse Oximetry (%) 100 10/30/17 20:14 CBCD WBC 12.3 K/mm3 (4.0-10.0) H 10/30/17 05:05 RBC 4.95 M/mm3 (3.60-5.2) 10/30/17 05:05 Hgb 14.1 GM/dL (10.7-15.3) 10/30/17 05:05 Hct 43.3 % (32.4-45.2) 10/30/17 05:05 MCV 87.5 fl (80-96) 10/30/17 05:05 MCHC 32.6 g/dl (32.0-36.0) 10/30/17 05:05 RDW 13.3 % (11.6-15.6) 10/30/17 05:05 Plt Count 439 K/MM3 (134-434) H 10/30/17 05:05 MPV 7.8 fl (7.5-11.1) 10/30/17 05:05 CMP Sodium 142 mmol/L (136-145) 10/30/17 05:05 Potassium 4.2 mmol/L (3.5-5.1) 10/30/17 05:05 Chloride 106 mmol/L (98-107) 10/30/17 05:05 Carbon Dioxide 28 mmol/L (21-32) 10/30/17 05:05 Anion Gap 8 (8-16) 10/30/17 05:05 BUN 16 mg/dL (7-18) 10/30/17 05:05 Creatinine 0.6 mg/dL (0.55-1.02) 10/30/17 05:05 Creat Clearance w eGFR > 60 (>60) 10/29/17 17:43 Random Glucose 96 mg/dL (74-106) 10/30/17 05:05 Calcium 8.9 mg/dL (8.5-10.1) 10/30/17 05:05 Total Bilirubin 0.4 mg/dL (0.2-1.0) D 10/29/17 17:43 AST 11 U/L (15-37) L 10/29/17 17:43 ALT 16 U/L (12-78) 10/29/17 17:43 Alkaline Phosphatase 47 U/L (45-117) 10/29/17 17:43 Total Protein 7.0 g/dl (6.4-8.2) 10/29/17 17:43 Albumin 3.7 g/dl (3.4-5.0) 10/29/17 17:43 CARDIAC ENZYMES Creatine Kinase 51 IU/L (26-192) 10/29/17 17:43 Troponin I < 0.02 ng/ml (0.00-0.05) 10/30/17 08:04 Current Medications Generic Name Dose Route Start Last Admin Trade Name Freq PRN Reason Stop Dose Admin Atorvastatin Calcium 10 mg 10/30/17 22:00 10/30/17 21:04 Lipitor - PO 10 mg HS MASSIMO Administration Heparin Sodium (Porcine) 5,000 unit 10/30/17 22:00 10/31/17 06:00 Heparin - SQ 5,000 unit TID MASSIMO Administration Metoprolol Succinate 100 mg 10/31/17 10:00 Toprol Xl - PO DAILY [facility] Home Medications Medication Instructions Recorded Cholecalciferol (Vitamin D3) 1,000 unit PO DAILY 10/24/17 [Vitamin D3 -] Metoprolol Succinate [Toprol Xl -] 100 mg PO DAILY 10/24/17 PE: NAD, tearful at times CV: RRR, NO MRG Lungs: CTAB Ext: no edema Abd: soft, ND, no TTP, abd mass in lower abd felt in LLQ, RLQ, and suprapubic area. dullness over this mass. neuro: no facial droop, EOMI, round equal pupils reactive to light . tongue and uvula at mid line . strength 5/5 in upper and lower ext proximally and distally. sensation to light touch nl. reflexes 2+ biceps and triceps b/l. nose to finger intact ASSESSMENT AND PLAN: 62 y/o lady with h/o HTN, h/o abd tumor s/p resection 1986 ( no clear details ) , who presented with syncope # Syncope: in DDx arrhythmias, vasovagal vs seizure; EKG with NSR, no ST or TW changes. ortho VS neg 2 short runs of VT seen on resident review of tele. - cont tele - monitor electrolytes - card consult - check MRI given her abd mass and possibility of cancer . r/o mets to brain # Abd mass: Ct a/p 10/17 reviewed. large mass in pelvis with hypo-dense areas in liver. ? uterine leiomyoma vs leiomyosarcoma , vs ovarian tumor . suspect pt had myomectomy not hysterectomy in 1986 . sx was performed in [facility] . - d/w dr. Saavedra. MRI is not the best study to perform . and Bx is not recommended due to risk of seeding - order CT of abd with contrast - GN consult - dw pt possibility of cancer . # HTN: cont metoprolol # hyperlipidemia: LDL 115. her 10 yr risk for CAd is 27%. indicating need to treat with statin - start low dose statin. adjust as outpt in 8 weeks DVT px: heparin
[2017-10-31 07:20] LABS: HEMATOCRIT 45.7 % (32.4-45.2); MCH 28.8 pg (25.7-33.7); MCHC 32.9 g/dl (32.0-36.0); MEAN CELL VOLUME 87.6 fl (80-96); MEAN PLT VOLUME 7.5 fl (7.5-11.1); PLATELET COUNT 445 K/MM3 (134-434); RBC 5.21 M/mm3 (3.60-5.2); RDW 13.1 % (11.6-15.6); WHITE BLOOD COUNT 11.6 K/mm3 (4.0-10.0)
[2017-10-31 08:29] LABS: ANION GAP 9 (8-16); BLOOD UREA NITROGEN 12 mg/dL (7-18); CALCIUM 9.6 mg/dL (8.5-10.1); CHLORIDE 104 mmol/L (98-107); CO2 28 mmol/L (21-32); CREATININE 0.6 mg/dL (0.55-1.02); GLUCOSE,RANDOM 93 mg/dL (74-106); POTASSIUM 4.6 mmol/L (3.5-5.1); SODIUM 141 mmol/L (136-145)
--- NOTE | 2017-10-31 10:34 | CON.CARD ---
Consult Consult Specialty:: Cardiology Referred by:: Hospitalist Medicine Reason for Consultation:: Syncope - History of Present Illness Chief Complaint: Syncope History of Present Illness: 62 y/o F with PMH HTN, uterine tumor (1986), who presents to the ED after syncopal episode. 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 Pt states that she has no recollection of what happened prior to the fall, but she woke up outstretched on the ground. States that she had LOC for a few seconds, however fall was unwitnessed. Pt endorsed R sided head trauma with bruising, and minor lacerations to her R lip and knee. Pt did not sleep well last night, as her brother recently . Prior to the event, she drank tea and coffee, denies drastic change in fluid or PO intake. She states that she initially went to Urgent Care, however they did not take her insurance, so she came to the ED. Denied palpitations, chest pain, dyspnea, loss of bowel or urinary incontinence during episode, tongue biting, fever, N/V, blurred vision, or recent sick contacts. She reports hysterectomy in 1986, but not sure of details and does know if she has her ovaries. she treats her abd tumor with herbs, denies vaginal bleed. She denies recurrent syncope since admission and telemetry without events for last 2 days. - History Source History Provided By: Patient Limitations to Obtaining History: No Limitations - Past Medical History Cardio/Vascular: Yes: HTN ...: No - Alcohol/Substance Use Hx Alcohol Use: No - Smoking History Smoking history: Never smoked Have you smoked in the past 12 months: No Home Medications - Allergies Allergies/Adverse Reactions: Allergies Allergy/AdvReac Type Severity Reaction Status Date / Time No Known Allergies Allergy Verified 10/29/17 17:20 - Home Medications Home Medications: Ambulatory Orders Cholecalciferol (Vitamin D3) [Vitamin D3 -] 1,000 unit PO DAILY 10/24/17 Metoprolol Succinate [Toprol Xl -] 100 mg PO DAILY 10/24/17 Review of Systems - Review of Systems Neurological: reports: Syncope Vital Signs: Vital Signs Temperature 98.2 F 10/31/17 10:00 Pulse Rate 78 10/31/17 10:00 Respiratory Rate 14 10/31/17 10:00 Blood Pressure 134/88 10/31/17 10:00 O2 Sat by Pulse Oximetry (%) 100 10/30/17 20:14 Constitutional: Yes: No Distress, Calm, Thin Neck: Yes: Supple Respiratory: Yes: Regular, CTA Bilaterally Gastrointestinal: Yes: Normal Bowel Sounds, Soft Cardiovascular: Yes: Regular Rate and Rhythm JVD: No Carotid Bruit: No Heart Sounds: Yes: S1, S2 Edema: No - Other Data Labs, Other Data: CBC, BMP 10/31/17 06:55 10/31/17 06:55 EKG: NSR @ [address]-T changes Tele: No sig pauses or arrhythmias Echo: Report Reviewed Ejection Fraction %: LVEF > or = 40 % Imaging - Results Chest X-ray: Report Reviewed (NAD) Cat Scan: Report Reviewed (HCT and facial bones: No fracture) Ultrasound: Report Reviewed (No carotid stenosis bilaterally) Problem List - Problems (1) Hyperlipidemia Code(s): E78.5 - HYPERLIPIDEMIA, UNSPECIFIED Qualifiers: Hyperlipidemia type: pure hypercholesterolemia Qualified Code(s): E78.00 - Pure hypercholesterolemia, unspecified; E78.0 - Pure hypercholesterolemia (2) Fibroid uterus Code(s): D25.9 - LEIOMYOMA OF UTERUS, UNSPECIFIED Qualifiers: Uterine leiomyoma location: unspecified location Qualified Code(s): D25.9 - Leiomyoma of uterus, unspecified (3) Syncope and collapse Code(s): R55 - SYNCOPE AND COLLAPSE (4) Hypertension Code(s): I10 - ESSENTIAL (PRIMARY) HYPERTENSION Qualifiers: Hypertension type: essential hypertension Qualified Code(s): I10 - Essential (primary) hypertension Assessment/Plan 10/31/2017 Echo: Normal biventricular size and fxn, tr TR 1. Syncope 2. Pelvic mass - fibroid uterus 3. HTN 4. Hyperlipidemia P:1. Negative w/u thus far for syncope 2. Continue Toprol XL 100 qd and Lipitor 10 qd 3. WINDOW MACHINE OPERATOR input 4. D/c planning
--- NOTE | 2017-10-31 12:57 | PN ---
<Jsoeph Michel - Last Filed: 10/31/17 13:00> Physical Exam: SUBJECTIVE: Patient seen and examined at bedside. No acute complaints, no overnight events. OBJECTIVE: Vital Signs Period Temp Pulse Resp BP Sys/Purcell Pulse Ox Last 24 Hr 97.7 F-98.4 F 63-78 14-20 112-158/60-88 100-100 GENERAL: The patient is awake, alert, and fully oriented, in no acute distress. HEAD: Normal with no signs of trauma. LUNGS: Breath sounds equal, clear to auscultation bilaterally, no wheezes, no crackles, no accessory muscle use. HEART: Regular rate and rhythm, S1, S2 without murmur, rub or gallop. ABDOMEN: hard mass palpated in the LLQ that spans around to the RLQ, nontender, normoactive bowel sounds, no guarding, no rebound, no hepatosplenomegaly EXTREMITIES: 2+ pulses, warm, well-perfused, no edema. NEUROLOGICAL: Cranial nerves II through XII grossly intact. Normal speech, gait not observed. PSYCH: Normal mood, normal affect. SKIN: Warm, dry, normal turgor, no rashes or lesions noted Laboratory Results - last 24 hr 10/31/17 10/31/17 06:55 06:55 WBC 11.6 H RBC 5.21 H Hgb 15.0 Hct 45.7 H MCV 87.6 MCH 28.8 MCHC 32.9 RDW 13.1 Plt Count 445 H MPV 7.5 Sodium 141 Potassium 4.6 Chloride 104 Carbon Dioxide 28 Anion Gap 9 BUN 12 Creatinine 0.6 Random Glucose 93 Calcium 9.6 Active Medications Generic Name Dose Route Start Last Admin Trade Name Taqueriaq PRN Reason Stop Dose Admin Atorvastatin Calcium 10 mg 10/30/17 22:00 10/30/17 21:04 Lipitor - PO 10 mg HS MASSIMO Administration Heparin Sodium (Porcine) 5,000 unit 10/30/17 22:00 10/31/17 06:00 Heparin - SQ 5,000 unit TID MASSIMO Administration Metoprolol Succinate 100 mg 10/31/17 10:00 10/31/17 09:02 Toprol Xl - PO 100 mg DAILY MASSIMO Administration IMAGING -EKG: NSR, Qtc 426 -Cervical spine CT: no acute fx, chronic degenerative changes in C5-C6, cervical spondylolysis -Head CT: no intracranial hemorrhage, chronic sphenoid sinus dz -CXR: without infiltrates -Old CT abd/pelvis from 2017: Large 23cm mass found in the pelvis compressing the bladder - echogenic foci noted in the liver (cyst vs ASSESSMENT/PLAN: 62 y/o F with PMH HTN (recent ED visit to [facility]), uterine tumor (1986), admitted to the hospital for evaluation of syncope, likely cardiogenic vs vasovagal #Syncopal episode: stable, no further episodes. -echo moderate aortic sclerosis -trops returned negative -Orthostatic vitals negative for orthostatic hypotension -carotid US negative for significant stenosis -Cardiology Dr. horton consult appreciated -would like brain MRI to rule out mets given mass in pelvis -pt has elevated cholesterol/LDL #Hypercholesterolemia: likely chronic -continue on atorvastatin 10mg PO QD #Pelvic Mass: increased in size compared to prior -currently asymptomatic -may need further imaging, would -Air Tank Assembler consulted -IR contacted - no biopsy for now and wait on applications sales consultant before doing MRI abdomen -May need possible bx #Hypertension: stable for now -toprol XL 100mg PO QD -continue to monitor and reassess dosage #Prophylaxis SCDs #FEN No standing fluids Monitor electrolytes, restart in Am Sodium controlled diet #Disposition Continue to monitor on tele-obs Visit type - Emergency Visit Emergency Visit: No - New Patient This patient is new to me today: No - Critical Care Critical Care patient: No <TeddyMinerva - Last Filed: 10/31/17 19:04> Physical Exam: Patient seen and examined. Patient is asymptomatic, wants to go home, at bedside. Explained in Details that she needs to follow up with her ON AIR DIRECTOR since had an US a year and 1/2 year ago to compare whether the size growing or not or stable also, we are not sure what kind of surgery you had in [place]. Please follow up with your primary care Doctor for further w/u and follow up with your OBGYN in week period to reaccess further for possible neoplasm, Patient was explained and understands and the understands as well since it's important to follow up closely with your doctors. Also you need to follow up with puller machine for possible holter monitor vs an event monitor. Patient is aware of this mass since 5 years ago, and being followed up with her OBGYN. Last follow up 1.5 years ago as per patient but she thinks that possible was sooner like a year ago. Doesn't recall the result of it. Vital Signs Temperature 98.1 F 10/31/17 17:00 Pulse Rate 67 10/31/17 17:00 Respiratory Rate 20 10/31/17 17:00 Blood Pressure 127/79 10/31/17 17:00 O2 Sat by Pulse Oximetry (%) 100 10/31/17 09:00 CBCD WBC 11.6 K/mm3 (4.0-10.0) H 10/31/17 06:55 RBC 5.21 M/mm3 (3.60-5.2) H 10/31/17 06:55 Hgb 15.0 GM/dL (10.7-15.3) 10/31/17 06:55 Hct 45.7 % (32.4-45.2) H 10/31/17 06:55 MCV 87.6 fl (80-96) 10/31/17 06:55 MCHC 32.9 g/dl (32.0-36.0) 10/31/17 06:55 RDW 13.1 % (11.6-15.6) 10/31/17 06:55 Plt Count 445 K/MM3 (134-434) H 10/31/17 06:55 MPV 7.5 fl (7.5-11.1) 10/31/17 06:55 CMP Sodium 141 mmol/L (136-145) 10/31/17 06:55 Potassium 4.6 mmol/L (3.5-5.1) 10/31/17 06:55 Chloride 104 mmol/L (98-107) 10/31/17 06:55 Carbon Dioxide 28 mmol/L (21-32) 10/31/17 06:55 Anion Gap 9 (8-16) 10/31/17 06:55 BUN 12 mg/dL (7-18) 10/31/17 06:55 Creatinine 0.6 mg/dL (0.55-1.02) 10/31/17 06:55 Creat Clearance w eGFR > 60 (>60) 10/29/17 17:43 Calcium 9.6 mg/dL (8.5-10.1) 10/31/17 06:55 Total Bilirubin 0.4 mg/dL (0.2-1.0) D 10/29/17 17:43 AST 11 U/L (15-37) L 10/29/17 17:43 ALT 16 U/L (12-78) 10/29/17 17:43 Alkaline Phosphatase 47 U/L (45-117) 10/29/17 17:43 Total Protein 7.0 g/dl (6.4-8.2) 10/29/17 17:43 Albumin 3.7 g/dl (3.4-5.0) 10/29/17 17:43 Current Medications Generic Name Dose Route Start Last Admin Trade Name Taqueriaq PRN Reason Stop Dose Admin Atorvastatin Calcium 10 mg 10/30/17 22:00 10/30/17 21:04 Lipitor - PO 10 mg HS MASSIMO Administration Heparin Sodium (Porcine) 5,000 unit 10/30/17 22:00 10/31/17 15:13 Heparin - SQ 5,000 unit TID MASSIMO Administration Metoprolol Succinate 100 mg 10/31/17 10:00 10/31/17 09:02 Toprol Xl - PO 100 mg DAILY MASSIMO Administration Home Medications Medication Instructions Recorded Cholecalciferol (Vitamin D3) 1,000 unit PO DAILY 10/24/17 [Vitamin D3 -] Metoprolol Succinate [Toprol Xl -] 100 mg PO DAILY 10/24/17 Atorvastatin Ca [Lipitor] 10 mg PO HS #30 tablet 10/31/17
[2017-10-31 13:58] VITALS: TEMP 98.1
[2017-10-31 18:47] VITALS: BP 127/79; PULSE 67
--- NOTE | 2017-11-05 12:52 | EKG ---
Test Reason : Blood Pressure : / mmHG Vent. Rate : 055 BPM Atrial Rate : 055 BPM P-R Int : 138 ms QRS Dur : 082 ms QT Int : 456 ms P-R-T Axes : 064 054 044 degrees QTc Int : 436 ms SINUS BRADYCARDIA POSSIBLE LEFT ATRIAL ENLARGEMENT POSSIBLE ANTERIOR INFARCT , AGE UNDETERMINED ABNORMAL ECG WHEN COMPARED WITH ECG OF 29-OCT-2017 17:34, T WAVE VARIATION Confirmed by JEFF SPEARS MD ([id number]) on 11/05/2017 12:52:17 PM Referred By: Confirmed By:JEFF SPEARS MD
== END 2017-10-31 20:15 | disposition home or self-care (01) ==
LOC: JER 17:16 → JERBED 20:57 → J4W 10-30 03:03
PROVIDERS: ADMIT Internal Medicine; ATTEND Internal Medicine
PROC: 3E013GC Introduction of Other Therapeutic Substance into Subcutaneous Tissue, Percutaneous Approach (ICD-10-PCS; principal; 2017-10-29)
PROC: 3E0337Z Introduction of Electrolytic and Water Balance Substance into Peripheral Vein, Percutaneous Approach (ICD-10-PCS; 2017-10-29)
PROC: 3E0234Z Introduction of Serum, Toxoid and Vaccine into Muscle, Percutaneous Approach (ICD-10-PCS; 2017-10-29)
DX: R55 Syncope and collapse (principal); I10 Essential (primary) hypertension; Z90.710 Acquired absence of both cervix and uterus; E78.5 Hyperlipidemia, unspecified; N85.2 Hypertrophy of uterus; D72.829 Elevated white blood cell count, unspecified; R19.07 Generalized intra-abdominal and pelvic swelling, mass and lump; D25.9 Leiomyoma of uterus, unspecified; W18.39XA Other fall on same level, initial encounter; Y93.01 Activity, walking, marching and hiking; Y92.480 Sidewalk as the place of occurrence of the external cause
CPT/HCPCS: 36415; 70450-TC; 70486-TC; 71046-TC-FY; 72125-TC; 74177-TC; 80048; 80053; 80061; 81003; 82550; 83721; 83735; 84100; 84443; 84484; 85025; 85027; 87086; 90471; 93005; 93010; 93306-TC; 93880-TC; 96372; 99285-25; G0378; J1644

== ENCOUNTER 2017-12-25 09:24 | Inpatient (IN) | payer OTHER ==
[2017-12-04 16:16] VITALS: BMI 19.5
[2017-12-25] MEDS ORDERED: ceFAZolin SODIUM 1 GM VIAL ONE (10:31)
--- NOTE | 2017-12-25 11:50 | HP ---
History & Physical Update - History History: No Change - Physical Physical: No Change - Assessment Assessment: No Change - Plan Plan: No Change (Update 11/27/17 consent)
[2017-12-25] MEDS ORDERED: BUPIVACAINE HCL/PF 0.5% (5MG/ML) 10 ML VIAL ONE (12:52)
[2017-12-25] MEDS ORDERED: ceFAZolin SODIUM 1 GM VIAL IVPB ONE (13:01)
[2017-12-25] MEDS ORDERED: BUPIVACAINE HCL/PF 0.5% (5MG/ML) 10 ML VIAL IJ ONE (13:05)
--- NOTE | 2017-12-25 14:29 | SURG ---
Surgery Pre Billing Clinician Note Pre Billing Clinician: Jose Enrique Dimas PA-C Date of Service: 12/25/17 Diagnosis: Left pelvic adnexal mass Procedure: Laparotomy, removal of pelvic mass and bilateral salpigo-oopherectomy I was present for the entirety of the operative procedure. For further detail, please refer to operative report. Visit type - Case Type Case Type: Scheduled Admission - New patient This patient is new to me today: Yes Date on this admission: 12/25/17
--- NOTE | 2017-12-25 14:30 | OP ---
Operative Note - Note: Operative Date: 12/25/17 Pre-Operative Diagnosis: Pelvic mass Operation: Laparotomy, left pelvic mass removal, bilateral salpingo-oopharectomy Post-Operative Diagnosis: Same as Pre-op Surgeon: Yeni Child Case Fitter: Jose Enrique Dimas Anesthesiologist/DIRECTOR OF THERAPY SERVICES: Iglesia Paul Anesthesia: General Specimens Removed: pelvic mass, bilateral tubes and ovaries, washings Estimated Blood Loss (mls): 150 Fluid Volume Replaced (mls): 1,000 Operative Report Dictated: Yes
[2017-12-25] MEDS ORDERED: ONDANSETRON 4 MG/2 ML VIAL IVPUSH PRN ×2 (14:33→14:34)
[2017-12-25] MEDS ORDERED: PROMETHAZINE HCL 25 MG/1 ML VIAL IVPB PRN (14:34)
[2017-12-25] MEDS ORDERED: ACETAMINOPHEN 1000 MG/100 ML VIAL (NON FORMULARY) IVPB ONE (14:34)
[2017-12-25] MEDS ORDERED: DEXAMETHASONE SOD PHOSPHATE 4 MG/1 ML VIAL IVPUSH PRN (14:34)
[2017-12-25] MEDS ORDERED: HYDROmorphone *PCA* 6MG/30ML DISP.SYRIN PCA ONE (14:35)
[2017-12-25] MEDS: HYDROmorphone *PCA* 6MG/30ML DISP.SYRIN PCA SCH (14:39)
[2017-12-25] MEDS ORDERED: ACETAMINOPHEN INJECTION 100 ML IVPB ONE ×2 (14:41→14:43)
[2017-12-25] MEDS: LACTATED RINGERS SOLUTION 1,000 ML IV SCH (16:45)
[2017-12-26] MEDS ORDERED: HYDROmorphone *PCA* 6MG/30ML DISP.SYRIN PCA ONE (06:58)
[2017-12-26] MEDS ORDERED: PCA PUMP KEY 1 EACH EACH ONE ×2 (06:59→16:49)
[2017-12-26] MEDS: HYDROmorphone *PCA* 6MG/30ML DISP.SYRIN PCA SCH ×2 (07:04→15:58)
--- NOTE | 2017-12-26 07:33 | OP ---
DATE OF OPERATION: 12/25/2017 PREOPERATIVE DIAGNOSIS: Pelvic mass. POSTOPERATIVE DIAGNOSIS: Left ovarian fibroma. PROCEDURE: Exploratory laparotomy, bilateral salpingo-oophorectomy and resection of left pelvic mass and lysis of adhesions. SURGEON: Yeni Child MD LANDSCAPE HORTICULTURE INSTRUCTOR: ZION Hutchinson PLAYERS ASSISTANT: Iglesia Paul CRNA ANESTHESIA: General endotracheal and local. ESTIMATED BLOOD LOSS: 150 mL. COMPLICATIONS: None. INDICATIONS: This is a 62-year-old with history of an abdominopelvic mass for many years. She had prior history of total abdominal hysterectomy. CT scan imaging showed a large abdominopelvic mass which appeared solid and with a surgically absent uterus. The patient was counseled regarding surgical management. Risks, benefits, indications, alternatives were discussed with the patient. All questions were answered. Informed consent was signed. FINDINGS: Exam under anesthesia: Large 20 weeks' size abdominopelvic mass, solid and mobile. Patient had a large previous vertical midline incision extending above the umbilicus. Upon laparotomy, there were omental adhesions to the anterior abdominal wall and small-bowel adhesions to the anterior abdominal wall. There were extensive small-bowel adhesions and adhesions to the colon. There was a large 20-cm solid and hard mass arising from the left adnexa. The right ovary and tube appeared normal. There was a surgically absent uterus. There were no other abnormal findings. PROCEDURE: The patient was taken to the operating room, placed in the dorsal supine position. General endotracheal anesthesia was obtained without difficulty. A Huston catheter was placed. She was prepped and draped in the normal sterile fashion. A vertical midline skin incision was made overlying her previous incision. Marcaine 10 mL had been injected into the midline subcutaneously prior to the incision. This incision was taken down to the fascia and the fascia was opened in the midline. The peritoneum was entered sharply with Metzenbaum scissors. The omentum was adherent to the anterior abdominal wall. This was lysed free. We were able to exteriorize the mass by extending the incision superior to the umbilicus using her previous scar. The mass was able to be exteriorized. Left ureter was identified and noted to be coursing near the mass. The left retroperitoneum was opened. Left ureterolysis was performed to free the ureter away from the mass. Left infundibulopelvic ligament was doubly clamped, transected and ligated with a free tie of 0 Vicryl and suture ligated with 0 Vicryl. The mass was handed off the field for frozen section which returned benign fibroma. The right ovary had been noted to be fibrotic overlying the right retroperitoneum and pelvis. The retroperitoneum was opened and the right ureter was dissected away from the ovary. There was extensive fibrosis here from prior surgery. The infundibulopelvic ligament was clamped, transected and ligated with a free tie of 0 Vicryl and suture ligated with 0 Vicryl. The ovary was then excised from its adhesions to the pelvic sidewall. It was handed off the field. Excellent hemostasis was seen. The pelvis was thoroughly irrigated and noted to be hemostatic. For added assurance, Surgicel was placed in the left pelvic sidewall. Some lysis of adhesions was performed of the small bowel and transverse colon which were adherent to the anterior abdominal wall so that the fascia could be closed without adhesions too close to the scar. The sponge, needle, instrument counts were correct x2. The fascia was closed in the midline using 0 looped PDS. The subcutaneous fat was irrigated with saline. Skin was closed with mary. Patient was extubated and transferred in stable condition to the PACU. Nadja [id number]
[2017-12-26] MEDS: ASCORBIC ACID 500 MG TABLET (FP) PO SCH (09:34)
[2017-12-26] MEDS: MULTIVITAMINS (DAILY MVI) TABLET (FP) PO SCH (09:34)
[2017-12-26] MEDS: CHOLECALCIFEROL (VITAMIN D3) 1,000 UNIT TABLET (FP) PO SCH (09:34)
[2017-12-26] MEDS: ENOXAPARIN NA (PORCINE) 40 MG/0.4 ML DISP.SYRIN SQ SCH (09:35)
[2017-12-26] MEDS: LACTATED RINGERS SOLUTION 1,000 ML IV SCH (12:20)
--- NOTE | 2017-12-26 13:07 | PN ---
Progress Note (short form) - Note Progress Note: POD#1 Pt states pain is controlled with ENT PHYSICIAN. Hasn't been oob/ambulating. No nausea or emesis, tolerated clears. No flatus/BM. Scant vaginal bleeding. Vital Signs Period Temp Pulse Resp BP Sys/Purcell Pulse Ox Last 24 Hr 97.6 F-99.1 F 70-89 15-20 93-161/53-84 99-100 brar-1600 clera/yellow urine GEN: appears comfortable ABD: soft, slight distended, inc tenderness. LE: no calf tenderness or swelling noted b/l A/P: 62 yo female s/p Laparotomy, left pelvic mass removal, bilateral salpingo- oopharectomy Continue clears as tolerated OOB/ambulate remove brar for TOV CBC/chem decrease IVF discontinue ENT PHYSICIAN this afternoon and begin oxycodone
[2017-12-26] MEDS ORDERED: LACTATED RINGERS SOLUTION 1,000 ML IV SCH (13:14)
--- NOTE | 2017-12-26 13:33 | PN ---
Progress Note (short form) - Note Progress Note: Anesthesiology Post-op/Pain Service POD# 1 s/p Ex. lap with removal of pelvic mass and BSO under GA with post-op SHIFT SUPERVISOR FILM PROCESSING. Pt. is AA&O in NAD. She does c/o abdominal pain. She states that SHIFT SUPERVISOR FILM PROCESSING helps but still painful. She has only started clears earlier today. VSS. 62 y.o. s/p ex-lap with post-op SHIFT SUPERVISOR FILM PROCESSING in pain but otherwise stable post-op course. Continue SHIFT SUPERVISOR FILM PROCESSING for now. Will likely d/c SHIFT SUPERVISOR FILM PROCESSING by tomorrow and change to PO meds if pt. tolerating PO well.
[2017-12-26 14:11] LABS: BASO % 0.2 % (0-2.0); EOS % 0.4 % (0-4.5); HEMATOCRIT 28.9 % (32.4-45.2); HEMOGLOBIN 9.8 GM/dL (10.7-15.3); LYMPH % 19.4 % (8-40); MCH 30.3 pg (25.7-33.7); MEAN CELL VOLUME 89.1 fl (80-96); MEAN PLT VOLUME 7.6 fl (7.5-11.1); MONO % 11.7 % (3.8-10.2); NEUT % 68.3 % (42.8-82.8); PLATELET COUNT 338 K/MM3 (134-434); RBC 3.25 M/mm3 (3.60-5.2); RDW 13.6 % (11.6-15.6)
[2017-12-26 14:42] LABS: ANION GAP 6 (8-16); BLOOD UREA NITROGEN 8 mg/dL (7-18); CALCIUM 8.1 mg/dL (8.5-10.1); CHLORIDE 102 mmol/L (98-107); CO2 30 mmol/L (21-32); CREATININE 0.5 mg/dL (0.55-1.02); GLUCOSE,RANDOM 100 mg/dL (74-106); POTASSIUM 3.8 mmol/L (3.5-5.1); SODIUM 138 mmol/L (136-145)
[2017-12-26] MEDS ORDERED: oxyCODONE HCL 5 MG TABLET PO PRN (17:00)
[2017-12-26] MEDS: ACETAMINOPHEN 325 MG TABLET (FP) PO PRN (20:41)
[2017-12-27] MEDS: ACETAMINOPHEN 325 MG TABLET (FP) PO PRN ×2 (04:51→13:53)
[2017-12-27] MEDS: oxyCODONE HCL 5 MG TABLET PO PRN ×2 (07:49→13:53)
--- NOTE | 2017-12-27 08:36 | PN ---
Progress Note (short form) - Note Progress Note: ANESTHESIOLOGY POST-OP CHECK POD# 2 s/p Ex. lap with removal of pelvic mass and BSO under GA with post-op JACQUARD LOOM WEAVER. JACQUARD LOOM WEAVER has been discontinued. Pt reports pain 6/10 and tolerable. Continue management as per primary team.
--- NOTE | 2017-12-27 08:45 | PN ---
Progress Note (short form) - Note Progress Note: POD#2 OOB and ambulating to the restroom, voiding without difficulty. No nausea, tolerated clears. No flatus or bowel function. Overnight pt used tylenol for pain. Slight cough, loose phlegm(clear) Vital Signs Period Temp Pulse Resp BP Sys/Purcell Pulse Ox Last 24 Hr 98.5 F-100.2 F 69-88 18-18 87-119/50-60 95 GEN: A&0x3, NAD CV: RRR Lungs: CTA b/l, anteriorly/posterior ABD: soft, slight distended, inc c/d/i with mary(midline). Incisional tenderness LE: No calf tenderness or swelling noted b/l CBC, BMP // 13:57 // 13:57 A/P: 62 yo female s/p Laparotomy, left pelvic mass removal, bilateral salpingo- oopharectomy Diet advanced this am to regular as tolerated Continue oob to chair/ambulate DVT ppx with lovenox SQ/ambulate Discontinue IVF Oral pain medications as needed Pt demonstrated good use of incentive spirometer, reinforced use of 10 times per hour while awake. Low grade temp probably secondary to atlectasis. D/w Dr. Child, pt may go home if tolerating a diet. Spoke with nurse and she is passing flatus.
[2017-12-27] MEDS: ASCORBIC ACID 500 MG TABLET (FP) PO SCH (09:19)
[2017-12-27] MEDS: MULTIVITAMINS (DAILY MVI) TABLET (FP) PO SCH (09:19)
[2017-12-27] MEDS: ENOXAPARIN NA (PORCINE) 40 MG/0.4 ML DISP.SYRIN SQ SCH (09:22)
[2017-12-27] MEDS: CHOLECALCIFEROL (VITAMIN D3) 1,000 UNIT TABLET (FP) PO SCH (13:29)
--- NOTE | 2017-12-27 15:50 | PATH ---
Cytology Non-Gynecological Report Patient Name: ALCIDES PABON [facility]. Rec. #: [id number] /Age/Gender: 1955 (Age: 62) / F Account: [id number] Location: [facility] OBS/MEDICAL RECEPTIONIST Taken: 12/25/2017 Received: 12/26/2017 Reported: 12/27/2017 Physicians: Yeni Child MD Specimen(s) Received PELVIC WASHINGS Clinical History Left pelvic mass Final Diagnosis PELVIC WASHING FOR CYTOLOGY: SATISFACTORY FOR EVALUATION THE LIMITED BY OBSCURING BLOOD BENIGN (NO MALIGNANT CELLS IDENTIFIED) BLOOD, BENIGN MESOTHELIAL CELLS AND LYMPHOCYTES PRESENT. Comment: Recommend correlation with clinical findings and follow up as clinically indicated. See [id number]. Electronically Signed Edson Maddox M.D. Gross Description Approximately 120 cc of bloody fluid received fresh. Two cytofunnels and one cellblock prepared.
--- NOTE | 2017-12-28 09:21 | PATH ---
Surgical Pathology Report Patient Name: ALCIDES PABON [facility]. Rec. #: [id number] /Age/Gender: 1955 (Age: 62) / F Account: [id number] Location: [facility] OBS/MOBILE PARAMEDICAL EXAMINER Taken: 12/25/2017 Received: 12/25/2017 Reported: 12/28/2017 Physicians: Yeni Child MD Specimen(s) Received A: LEFT TUBE AND OVARY LEFT PELVIC MASS B: RIGHT TUBE AND OVARY C: OMENTUM Clinical History Left pelvic mass Intraoperative Consult Diagnosis Left pelvic mass frozen section: Favor fibroma on senior customer service representative section. Ginny Sommers M.D., 12/25/17 Final Diagnosis A. LEFT FALLOPIAN TUBE AND OVARY, SALPINGO-OOPHORECTOMY: OVARIAN FIBROMA, 2046 GRAMS, AND BENIGN FALLOPIAN TUBE WITH FIBROVASCULAR ADHESIONS. B. RIGHT FALLOPIAN TUBE AND OVARY, SALPINGO-OOPHORECTOMY: BENIGN FALLOPIAN TUBE AND OVARY WITH FIBROVASCULAR ADHESIONS, AND FOCAL SUTURE GRANULOMA. C. OMENTUM, PARTIAL EXCISION: BENIGN ADIPOSE TISSUE WITH ADMIXED BLOOD VESSELS CONSISTENT WITH OMENTUM, WITH AREAS OF HEMORRHAGE. Comment: Recommend correlation with clinical findings and follow up as clinically indicated. Electronically Signed Edson Maddox M.D. Gross Description A. Received fresh labeled "left tube and ovary," is a 2046 g, 19.0 x 16.0 x 11.5 cm ovarian mass. The outer surface is rojas-pink and smooth with an attached 4.5 cm in length portion of fallopian tube. The fallopian tube displays an attached 4.5 x 4.0 x 1.0 cm aggregate of serous cystic structures measuring up to 2.2 cm in greatest dimension. Some of the cystic structures are adhered to the outer surface of the ovarian mass. Sectioning of the fallopian tube reveals an unremarkable lumen. No definite fimbria are identified. Sectioning of the ovarian mass displays rojas, firm, fibrous parenchyma with foci of degeneration. A senior customer service representative section is submitted for frozen section. Tire Center Manager sections are submitted in 13 cassettes as follows: 1-frozen section residue; 5-gnfur-gifmliuy of fallopian tube; 3-4-serous cystic structures adhered to fallopian tube and surrounding ovarian mass; 1-99-ypclsswtsgqipo ovarian mass. /12/25/2017 B. Received in formalin labelled "right ovary and tube" is an approximate 3 cm long x 0.5 cm diameter fallopian tube including the fimbriated end, with an attached 3.5 x 2.3 x 1.2 cm ovary. Additional hemorrhagic tissue is present. No focal lesions are identified. Tire Center Manager sections are submitted in 4 cassettes. C. Received in formalin labelled "omentum" is an 8.3 x 6.5 x 2.2 cm portion of uniform lobulated yellow adipose tissue. Cut surface reveals no focal lesions. No areas of hemorrhage or necrosis are identified. Tire Center Manager sections are submitted in 2 cassettes. [facility]2017
[2017-12-28] MEDS: ACETAMINOPHEN 325 MG TABLET (FP) PO PRN (09:24)
[2017-12-28] MEDS: MULTIVITAMINS (DAILY MVI) TABLET (FP) PO SCH (09:26)
[2017-12-28] MEDS: ASCORBIC ACID 500 MG TABLET (FP) PO SCH (09:26)
[2017-12-28] MEDS: ENOXAPARIN NA (PORCINE) 40 MG/0.4 ML DISP.SYRIN SQ SCH (09:26)
[2017-12-28 12:35] VITALS: BP 111/71; PULSE 69; TEMP 98.6
== END 2017-12-28 13:00 | disposition home or self-care (01) | DRG 224 ==
LOC: JASU-SURG 09:24 → JSAMEDAYSX 14:31 → J3W 16:55
PROVIDERS: ADMIT Obstetrics & Gynecology Gynecologic Oncology; ATTEND Obstetrics & Gynecology Gynecologic Oncology
PROC: 0UT20ZZ Resection of Bilateral Ovaries, Open Approach (ICD-10-PCS; 2017-12-25)
PROC: 0WCJ0ZZ Extirpation of Matter from Pelvic Cavity, Open Approach (ICD-10-PCS; 2017-12-25)
PROC: 0DNW0ZZ Release Peritoneum, Open Approach (ICD-10-PCS; 2017-12-25)
PROC: 0UT70ZZ Resection of Bilateral Fallopian Tubes, Open Approach (ICD-10-PCS; principal; 2017-12-25 11:30)
DX: R19.00 Intra-abdominal and pelvic swelling, mass and lump, unspecified site (principal); N73.6 Female pelvic peritoneal adhesions (postinfective)
CPT/HCPCS: 36415; 80048; 85025; 86850; 86900; 86901; 88108; 88305-TC; 88307-TC; 88331-TC; 94010; 94760; J0131; J1170

== ENCOUNTER 2020-09-28 17:06 | Inpatient (IN) | payer OTHER ==
[2020-09-28 18:43] LABS: BASO % 0.2 % (0-2.0); EOS % 0.1 % (0-4.5); HEMATOCRIT 41.3 % (32.4-45.2); HEMOGLOBIN 13.7 GM/dL (10.7-15.3); LYMPH % 4.4 % (8-40); MCH 28.7 pg (25.7-33.7); MCHC 33.3 g/dl (32.0-36.0); MEAN CELL VOLUME 86.4 fl (80-96); MEAN PLT VOLUME 6.9 fl (7.5-11.1); MONO % 4.6 % (3.8-10.2); NEUT % 90.7 % (42.8-82.8); PLATELET COUNT 408 K/MM3 (134-434); RBC 4.79 M/mm3 (3.60-5.2); WHITE BLOOD COUNT 17.2 K/mm3 (4.0-10.0)
[2020-09-28 18:50] LABS: INR 1.08 (0.83-1.09); PROTHROMBIN TIME (PATIENT) 13.3 SEC (9.7-13.0)
[2020-09-28 18:53] LABS: ACTIVATED PTT 26.9 SECONDS (25.2-36.5)
[2020-09-28 19:08] LABS: ALBUMIN 3.2 g/dl (3.4-5.0); BLOOD UREA NITROGEN 9.5 mg/dL (7-18); CALCIUM 8.9 mg/dL (8.5-10.1)
[2020-09-28 19:12] LABS: CREATININE 0.7 mg/dL (0.55-1.3)
[2020-09-28 19:13] LABS: BILIRUBIN,TOTAL 0.7 mg/dL (0.2-1); TOT PROT 7.3 g/dl (6.4-8.2)
[2020-09-28] MEDS ORDERED: ACETAMINOPHEN 1000 MG/100 ML BAG IVPB ONE (19:25)
[2020-09-28] MEDS ORDERED: SODIUM CHLORIDE 0.9% 500 ML INFUS.BAG IV ONE (19:25)
[2020-09-28] MEDS ORDERED: ACETAMINOPHEN INJECTION 100 ML IVPB ONE (19:32)
[2020-09-28 19:40] LABS: BILIRUBIN,DIRECT 0.3 mg/dL (0.0-0.2)
[2020-09-28] MEDS ORDERED: DEXAMETHASONE SOD PHOSPHATE 4 MG/1 ML VIAL IVPUSH ONE (20:39)
[2020-09-28] MEDS ORDERED: CEFTRIAXONE 1 GM in DEXTROSE 5%-WATER - 100 ML IVPB ONE (20:45)
[2020-09-28] MEDS ORDERED: AZITHROMYCIN IVPB 500 MG in DEXTROSE 5%-WATER - 250 ML IVPB ONE (20:45)
[2020-09-28] MEDS ORDERED: CEFTRIAXONE 1 GM/50 ML BAG ONE (20:49)
[2020-09-28] MEDS ORDERED: DEXAMETHASONE SOD PHOSPHATE 10 MG/1 ML VIAL ONE (20:49)
[2020-09-28] MEDS ORDERED: AZITHROMYCIN IVPB 500 MG/250 ML BAG IVPB ONE (20:50)
[2020-09-28] MEDS ORDERED: SODIUM CHLORIDE 500 ML IV STA (22:51)
[2020-09-28] MEDS ORDERED: ENOXAPARIN NA (PORCINE) 40 MG/0.4 ML DISP.SYRIN SQ ONE ×2 (22:55→23:36)
[2020-09-28] MEDS ORDERED: PANTOPRAZOLE SODIUM 40 MG VIAL ONE (23:34)
[2020-09-28] MEDS: ENOXAPARIN NA (PORCINE) 40 MG/0.4 ML DISP.SYRIN SQ SCH (23:42)
[2020-09-29 03:23] LABS: PH,URINE 5.5 (5.0-8.0); URINE APPEARANCE CLOUDY; URINE BILIRUBIN NEGATIVE (NEGATIVE); URINE COLOR YELLOW; URINE GLUCOSE (UA) NEGATIVE (NEGATIVE); URINE KETONE TRACE (NEGATIVE); URINE LEUK ESTERASE NEGATIVE (NEGATIVE); URINE NITRITE NEGATIVE (NEGATIVE); URINE PROTEIN NEGATIVE (NEGATIVE); URINE UROBILINOGEN 0.2 mg/dL (0.2-1.0)
[2020-09-29 09:17] LABS: BASO % 0.3 % (0-2.0); EOS % 0.3 % (0-4.5); HEMATOCRIT 36.1 % (32.4-45.2); HEMOGLOBIN 12.3 GM/dL (10.7-15.3); LYMPH % 11.3 % (8-40); MCH 29.3 pg (25.7-33.7); MEAN PLT VOLUME 6.8 fl (7.5-11.1); MONO % 7.3 % (3.8-10.2); NEUT % 80.8 % (42.8-82.8); PLATELET COUNT 366 K/MM3 (134-434); RDW 12.9 % (11.6-15.6); WHITE BLOOD COUNT 8.3 K/mm3 (4.0-10.0)
[2020-09-29] MEDS ORDERED: DEXTROSE 5%-WATER 100 ML IVPB ONE ×2 (09:46→21:34)
[2020-09-29] MEDS ORDERED: DOXYCYCLINE HYCLATE 100 MG VIAL ONE ×2 (09:46→21:34)
[2020-09-29] MEDS ORDERED: cefTRIAXone SODIUM 1 GM VIAL ONE (09:48)
[2020-09-29] MEDS ORDERED: DEXTROSE 5%-WATER - 50 ML IVPB ONE (09:48)
[2020-09-29] MEDS: DOXYCYCLINE INJECTION 100 MG in DEXTROSE 5%-WATER 100 ML IVPB SCH ×2 (10:03→21:46)
[2020-09-29] MEDS: ZINC SULFATE 220 MG CAPSULE (FP) PO SCH (10:03)
[2020-09-29] MEDS: ASCORBIC ACID 500 MG TABLET (FP) PO SCH ×2 (10:03→21:45)
[2020-09-29] MEDS: CHOLECALCIFEROL (VIT D3) 1,000 UNIT (25 MCG) TABLET PO SCH (10:03)
[2020-09-29] MEDS: ENOXAPARIN NA (PORCINE) 40 MG/0.4 ML DISP.SYRIN SQ SCH (10:03)
[2020-09-29] MEDS: FAMOTIDINE 20 MG TABLET PO SCH ×2 (10:03→21:45)
[2020-09-29] MEDS: CEFTRIAXONE 1 GM in DEXTROSE 5%-WATER - 50 ML IVPB SCH (10:04)
[2020-09-29] MEDS: DEXAMETHASONE SOD PHOSPHATE 4 MG/1 ML VIAL IVPUSH SCH (10:04)
[2020-09-29] MEDS ORDERED: REMDESIVIR 200 MG in SODIUM CHLORIDE 210 ML IVPB ONE (12:54)
[2020-09-29] MEDS: ROSUVASTATIN CA 10 MG TABLET PO SCH (21:46)
[2020-09-30 08:36] LABS: BASO % 0.1 % (0-2.0); EOS % 0.1 % (0-4.5); HEMATOCRIT 34.4 % (32.4-45.2); HEMOGLOBIN 11.5 GM/dL (10.7-15.3); LYMPH % 10.6 % (8-40); MCH 28.8 pg (25.7-33.7); MCHC 33.6 g/dl (32.0-36.0); MEAN CELL VOLUME 85.9 fl (80-96); NEUT % 79.2 % (42.8-82.8); PLATELET COUNT 432 K/MM3 (134-434); RDW 12.6 % (11.6-15.6); WHITE BLOOD COUNT 7.5 K/mm3 (4.0-10.0)
[2020-09-30 09:06] LABS: CALCIUM 8.7 mg/dL (8.5-10.1)
[2020-09-30 09:07] LABS: ALBUMIN 2.5 g/dl (3.4-5.0)
[2020-09-30 09:10] LABS: CREATININE 0.4 mg/dL (0.55-1.3); PHOSPHOROUS 2.8 mg/dL (2.5-4.9)
[2020-09-30 09:11] LABS: BILIRUBIN,TOTAL 0.5 mg/dL (0.2-1); TOT PROT 6.1 g/dl (6.4-8.2)
[2020-09-30] MEDS ORDERED: DOXYCYCLINE HYCLATE 100 MG VIAL ONE ×2 (10:12→21:17)
[2020-09-30] MEDS ORDERED: DEXTROSE 5%-WATER 100 ML IVPB ONE ×2 (10:12→21:17)
[2020-09-30] MEDS ORDERED: DEXTROSE 5%-WATER - 50 ML IVPB ONE (10:13)
[2020-09-30] MEDS ORDERED: cefTRIAXone SODIUM 1 GM VIAL ONE (10:13)
[2020-09-30] MEDS: DEXAMETHASONE SOD PHOSPHATE 4 MG/1 ML VIAL IVPUSH SCH (10:31)
[2020-09-30] MEDS: CEFTRIAXONE 1 GM in DEXTROSE 5%-WATER - 50 ML IVPB SCH (10:32)
[2020-09-30] MEDS: CHOLECALCIFEROL (VIT D3) 1,000 UNIT (25 MCG) TABLET PO SCH (10:32)
[2020-09-30] MEDS: ZINC SULFATE 220 MG CAPSULE (FP) PO SCH (10:32)
[2020-09-30] MEDS: ASCORBIC ACID 500 MG TABLET (FP) PO SCH ×2 (10:32→21:55)
[2020-09-30] MEDS: FAMOTIDINE 20 MG TABLET PO SCH ×2 (10:32→21:56)
[2020-09-30] MEDS: DOXYCYCLINE INJECTION 100 MG in DEXTROSE 5%-WATER 100 ML IVPB SCH ×2 (10:32→21:55)
[2020-09-30] MEDS: ENOXAPARIN NA (PORCINE) 40 MG/0.4 ML DISP.SYRIN SQ SCH (10:33)
[2020-09-30 11:25] LABS: ERYTHROCYTE SEDIMENTATION RATE 90 mm/hr (0-30)
[2020-09-30] MEDS: REMDESIVIR 100 MG in SODIUM CHLORIDE 230 ML IVPB SCH (14:27)
[2020-09-30] MEDS: ROSUVASTATIN CA 10 MG TABLET PO SCH (21:55)
[2020-10-01 09:56] LABS: BASO % 0.1 % (0-2.0); HEMOGLOBIN 12.9 GM/dL (10.7-15.3); LYMPH % 8.3 % (8-40); MCH 29.1 pg (25.7-33.7); MEAN CELL VOLUME 85.6 fl (80-96); MONO % 7.2 % (3.8-10.2); NEUT % 84.4 % (42.8-82.8); PLATELET COUNT 575 K/MM3 (134-434); RBC 4.44 M/mm3 (3.60-5.2); RDW 12.9 % (11.6-15.6); WHITE BLOOD COUNT 11.3 K/mm3 (4.0-10.0)
[2020-10-01] MEDS ORDERED: DEXTROSE 5%-WATER 100 ML IVPB ONE ×2 (09:56→21:50)
[2020-10-01] MEDS ORDERED: DOXYCYCLINE HYCLATE 100 MG VIAL ONE ×2 (09:56→21:50)
[2020-10-01] MEDS ORDERED: DEXTROSE 5%-WATER - 50 ML IVPB ONE (09:58)
[2020-10-01] MEDS ORDERED: cefTRIAXone SODIUM 1 GM VIAL ONE (09:58)
[2020-10-01] MEDS: FAMOTIDINE 20 MG TABLET PO SCH ×2 (10:02→21:53)
[2020-10-01] MEDS: ZINC SULFATE 220 MG CAPSULE (FP) PO SCH (10:02)
[2020-10-01] MEDS: CHOLECALCIFEROL (VIT D3) 1,000 UNIT (25 MCG) TABLET PO SCH (10:02)
[2020-10-01] MEDS: ASCORBIC ACID 500 MG TABLET (FP) PO SCH ×2 (10:03→21:53)
[2020-10-01] MEDS: ENOXAPARIN NA (PORCINE) 40 MG/0.4 ML DISP.SYRIN SQ SCH (10:04)
[2020-10-01] MEDS: DEXAMETHASONE SOD PHOSPHATE 4 MG/1 ML VIAL IVPUSH SCH (10:04)
[2020-10-01] MEDS: CEFTRIAXONE 1 GM in DEXTROSE 5%-WATER - 50 ML IVPB SCH (10:05)
[2020-10-01] MEDS: DOXYCYCLINE INJECTION 100 MG in DEXTROSE 5%-WATER 100 ML IVPB SCH ×2 (10:06→21:54)
[2020-10-01 10:25] LABS: CALCIUM 9.3 mg/dL (8.5-10.1)
[2020-10-01 10:26] LABS: BLOOD UREA NITROGEN 16.8 mg/dL (7-18); MAGNESIUM 2.1 mg/dL (1.8-2.4)
[2020-10-01 10:28] LABS: ALBUMIN 2.8 g/dl (3.4-5.0); CREATININE 0.5 mg/dL (0.55-1.3)
[2020-10-01 10:29] LABS: BILIRUBIN,TOTAL 0.5 mg/dL (0.2-1); PHOSPHOROUS 3.8 mg/dL (2.5-4.9); TOT PROT 6.7 g/dl (6.4-8.2)
[2020-10-01 10:59] LABS: ERYTHROCYTE SEDIMENTATION RATE 79 mm/hr (0-30)
[2020-10-01] MEDS: REMDESIVIR 100 MG in SODIUM CHLORIDE 230 ML IVPB SCH (13:32)
[2020-10-01 14:27] VITALS: BMI 19.5
[2020-10-01] MEDS: ROSUVASTATIN CA 10 MG TABLET PO SCH (21:53)
[2020-10-02] MEDS: AMINO ACIDS/PROTEIN HYDROLYS 30 ML LIQUID.PKT PO SCH (08:23)
[2020-10-02 09:08] LABS: BASO % 0.2 % (0-2.0); EOS % 0.2 % (0-4.5); HEMATOCRIT 36.1 % (32.4-45.2); LYMPH % 8.5 % (8-40); MCH 28.6 pg (25.7-33.7); MCHC 33.3 g/dl (32.0-36.0); MEAN CELL VOLUME 85.9 fl (80-96); MEAN PLT VOLUME 7.1 fl (7.5-11.1); NEUT % 82.1 % (42.8-82.8); PLATELET COUNT 601 K/MM3 (134-434); RDW 12.8 % (11.6-15.6); WHITE BLOOD COUNT 10.1 K/mm3 (4.0-10.0)
[2020-10-02 09:35] LABS: ALBUMIN 2.6 g/dl (3.4-5.0); BLOOD UREA NITROGEN 20.1 mg/dL (7-18); CALCIUM 8.7 mg/dL (8.5-10.1)
[2020-10-02 09:39] LABS: CREATININE 0.5 mg/dL (0.55-1.3)
[2020-10-02 09:40] LABS: BILIRUBIN,TOTAL 0.6 mg/dL (0.2-1)
[2020-10-02] MEDS ORDERED: DEXTROSE 5%-WATER 100 ML IVPB ONE ×2 (10:19→21:14)
[2020-10-02] MEDS ORDERED: DOXYCYCLINE HYCLATE 100 MG VIAL ONE ×2 (10:19→21:14)
[2020-10-02] MEDS ORDERED: cefTRIAXone SODIUM 1 GM VIAL ONE (10:20)
[2020-10-02] MEDS ORDERED: DEXTROSE 5%-WATER - 50 ML IVPB ONE (10:20)
[2020-10-02] MEDS: CHOLECALCIFEROL (VIT D3) 1,000 UNIT (25 MCG) TABLET PO SCH (10:24)
[2020-10-02] MEDS: DEXAMETHASONE SOD PHOSPHATE 4 MG/1 ML VIAL IVPUSH SCH (10:24)
[2020-10-02] MEDS: ENOXAPARIN NA (PORCINE) 40 MG/0.4 ML DISP.SYRIN SQ SCH (10:24)
[2020-10-02] MEDS: DOXYCYCLINE INJECTION 100 MG in DEXTROSE 5%-WATER 100 ML IVPB SCH ×2 (10:25→21:39)
[2020-10-02] MEDS: ASCORBIC ACID 500 MG TABLET (FP) PO SCH ×2 (10:25→21:40)
[2020-10-02] MEDS: ZINC SULFATE 220 MG CAPSULE (FP) PO SCH (10:25)
[2020-10-02] MEDS: FAMOTIDINE 20 MG TABLET PO SCH ×2 (10:25→21:40)
[2020-10-02] MEDS: CEFTRIAXONE 1 GM in DEXTROSE 5%-WATER - 50 ML IVPB SCH (11:58)
[2020-10-02] MEDS: REMDESIVIR 100 MG in SODIUM CHLORIDE 230 ML IVPB SCH (14:05)
[2020-10-02] MEDS: ROSUVASTATIN CA 10 MG TABLET PO SCH (21:40)
[2020-10-03 09:33] LABS: BASO % 0.1 % (0-2.0); EOS % 0.3 % (0-4.5); HEMATOCRIT 38.5 % (32.4-45.2); LYMPH % 12.5 % (8-40); MCH 28.9 pg (25.7-33.7); MCHC 33.8 g/dl (32.0-36.0); MEAN CELL VOLUME 85.6 fl (80-96); MONO % 13.3 % (3.8-10.2); NEUT % 73.8 % (42.8-82.8); PLATELET COUNT 698 K/MM3 (134-434); RBC 4.49 M/mm3 (3.60-5.2); RDW 12.8 % (11.6-15.6); WHITE BLOOD COUNT 10.5 K/mm3 (4.0-10.0)
[2020-10-03 09:46] LABS: ALBUMIN 2.8 g/dl (3.4-5.0); BILIRUBIN,TOTAL 0.6 mg/dL (0.2-1); BLOOD UREA NITROGEN 21.3 mg/dL (7-18); TOT PROT 6.5 g/dl (6.4-8.2)
[2020-10-03 09:52] LABS: CREATININE 0.5 mg/dL (0.55-1.3)
[2020-10-03 09:58] LABS: CALCIUM 9.1 mg/dL (8.5-10.1)
[2020-10-03] MEDS ORDERED: DOXYCYCLINE HYCLATE 100 MG VIAL ONE ×2 (10:22→22:51)
[2020-10-03] MEDS ORDERED: DEXTROSE 5%-WATER 100 ML IVPB ONE ×2 (10:22→22:51)
[2020-10-03] MEDS ORDERED: DEXTROSE 5%-WATER - 50 ML IVPB ONE (10:24)
[2020-10-03] MEDS ORDERED: cefTRIAXone SODIUM 1 GM VIAL ONE (10:24)
[2020-10-03] MEDS: CEFTRIAXONE 1 GM in DEXTROSE 5%-WATER - 50 ML IVPB SCH (10:43)
[2020-10-03] MEDS: ZINC SULFATE 220 MG CAPSULE (FP) PO SCH (10:45)
[2020-10-03] MEDS: DOXYCYCLINE INJECTION 100 MG in DEXTROSE 5%-WATER 100 ML IVPB SCH ×2 (10:45→22:59)
[2020-10-03] MEDS: ASCORBIC ACID 500 MG TABLET (FP) PO SCH ×2 (10:46→22:59)
[2020-10-03] MEDS: CHOLECALCIFEROL (VIT D3) 1,000 UNIT (25 MCG) TABLET PO SCH (10:46)
[2020-10-03] MEDS: AMINO ACIDS/PROTEIN HYDROLYS 30 ML LIQUID.PKT PO SCH (10:48)
[2020-10-03] MEDS: FAMOTIDINE 20 MG TABLET PO SCH ×2 (10:48→22:59)
[2020-10-03] MEDS: DEXAMETHASONE SOD PHOSPHATE 4 MG/1 ML VIAL IVPUSH SCH (10:48)
[2020-10-03] MEDS: ENOXAPARIN NA (PORCINE) 40 MG/0.4 ML DISP.SYRIN SQ SCH (10:48)
[2020-10-03 11:12] LABS: ANISOCYTOSIS 1+; MACROCYTOSIS 0; PLATELET ESTIMATE INCREASED
[2020-10-03] MEDS ORDERED: PT OWN MED DRAWER 7, Y5N ONE (14:31)
[2020-10-03] MEDS: REMDESIVIR 100 MG in SODIUM CHLORIDE 230 ML IVPB SCH (15:00)
[2020-10-03] MEDS: ROSUVASTATIN CA 10 MG TABLET PO SCH (22:59)
[2020-10-04 06:51] VITALS: BP 119/71; TEMP 97.7
[2020-10-04 08:40] LABS: BASO % 0.1 % (0-2.0); EOS % 0.2 % (0-4.5); HEMATOCRIT 41.5 % (32.4-45.2); LYMPH % 12.8 % (8-40); MCH 28.7 pg (25.7-33.7); MCHC 33.6 g/dl (32.0-36.0); MEAN CELL VOLUME 85.2 fl (80-96); MEAN PLT VOLUME 6.8 fl (7.5-11.1); MONO % 7.1 % (3.8-10.2); NEUT % 79.8 % (42.8-82.8); PLATELET COUNT 808 K/MM3 (134-434); RBC 4.88 M/mm3 (3.60-5.2); WHITE BLOOD COUNT 12.3 K/mm3 (4.0-10.0)
[2020-10-04 09:00] LABS: CALCIUM 9.5 mg/dL (8.5-10.1)
[2020-10-04 09:01] LABS: BLOOD UREA NITROGEN 20.7 mg/dL (7-18)
[2020-10-04 09:04] LABS: CREATININE 0.6 mg/dL (0.55-1.3)
[2020-10-04 09:05] LABS: BILIRUBIN,TOTAL 0.6 mg/dL (0.2-1)
[2020-10-04 09:06] LABS: TOT PROT 6.8 g/dl (6.4-8.2)
[2020-10-04 09:33] VITALS: PULSE 85
[2020-10-04] MEDS ORDERED: DEXTROSE 5%-WATER 100 ML IVPB ONE (09:58)
[2020-10-04] MEDS ORDERED: DOXYCYCLINE HYCLATE 100 MG VIAL ONE (09:58)
[2020-10-04] MEDS ORDERED: DEXTROSE 5%-WATER - 50 ML IVPB ONE (09:59)
[2020-10-04] MEDS ORDERED: cefTRIAXone SODIUM 1 GM VIAL ONE (09:59)
[2020-10-04] MEDS: DEXAMETHASONE SOD PHOSPHATE 4 MG/1 ML VIAL IVPUSH SCH (10:16)
[2020-10-04] MEDS: CHOLECALCIFEROL (VIT D3) 1,000 UNIT (25 MCG) TABLET PO SCH (10:16)
[2020-10-04] MEDS: ASCORBIC ACID 500 MG TABLET (FP) PO SCH (10:16)
[2020-10-04] MEDS: DOXYCYCLINE INJECTION 100 MG in DEXTROSE 5%-WATER 100 ML IVPB SCH (10:16)
[2020-10-04] MEDS: AMINO ACIDS/PROTEIN HYDROLYS 30 ML LIQUID.PKT PO SCH (10:16)
[2020-10-04] MEDS: FAMOTIDINE 20 MG TABLET PO SCH (10:17)
[2020-10-04] MEDS: ENOXAPARIN NA (PORCINE) 40 MG/0.4 ML DISP.SYRIN SQ SCH (10:17)
[2020-10-04] MEDS: CEFTRIAXONE 1 GM in DEXTROSE 5%-WATER - 50 ML IVPB SCH (10:17)
[2020-10-04] MEDS: ZINC SULFATE 220 MG CAPSULE (FP) PO SCH (10:17)
== END 2020-10-04 17:28 | disposition home or self-care (01) | DRG 137 ==
LOC: JER 17:06 → JERBED 20:43 → J6S 09-29 04:43
PROVIDERS: ADMIT Hospitalist; ATTEND Internal Medicine
PROC: XW13325 Transfusion of Convalescent Plasma (Nonautologous) into Peripheral Vein, Percutaneous Approach, New Technology Group 5 (ICD-10-PCS; principal; 2020-09-29)
PROC: XW033E5 Introduction of Remdesivir Anti-infective into Peripheral Vein, Percutaneous Approach, New Technology Group 5 (ICD-10-PCS; 2020-09-29)
DX: U07.1 COVID-19 (principal); J12.89 Other viral pneumonia; J96.01 Acute respiratory failure with hypoxia; E87.2 Acidosis; E87.1 Hypo-osmolality and hyponatremia; I10 Essential (primary) hypertension; E78.5 Hyperlipidemia, unspecified; E86.0 Dehydration
CPT/HCPCS: 36415; 36430; 71045-TC-FY; 80053; 81003; 82248; 82550; 82728; 83605; 83615; 83735; 84100; 84484; 85025; 85379; 85610; 85651; 85730; 86140; 86850; 86900; 86901; 87040; 87086; 87804; 87899; 93005; 93010; 94010; 94761; 99285-25; C9399; C9803; J0131; P9017; U0003

== ENCOUNTER 2022-06-20 05:00 | Day surgery (SDC) | payer OTHER ==
[2022-06-15 14:24] VITALS: BMI 21.7
[2022-06-20] MEDS ORDERED: PROPOFOL 20 ML ONE (11:49)
[2022-06-20] MEDS ORDERED: MIDAZOLAM HCL 2 MG/2 ML SINGLE DOSE VIAL ONE (11:49)
[2022-06-20] MEDS ORDERED: ceFAZolin SODIUM 1 GM VIAL ONE (11:49)
[2022-06-20] MEDS ORDERED: ceFAZolin SODIUM 1 GM VIAL IVPB ONE (12:04)
[2022-06-20 12:41] VITALS: RESP 18
[2022-06-20 14:05] VITALS: BP 139/78; PULSE 62; TEMP 96.9
== END 2022-06-20 14:10 | disposition home or self-care (01) ==
LOC: JASU-SURG 05:00
PROVIDERS: ATTEND Urology
PROC: 0TF3XZZ Fragmentation in Right Kidney Pelvis, External Approach (ICD-10-PCS; principal; 2022-06-20 11:15)
DX: N20.0 Calculus of kidney (principal); R31.29 Other microscopic hematuria; R39.198 Other difficulties with micturition